=== PATIENT | male | born 1995 | race Caucasian/White ===

== ENCOUNTER 2017-05-16 23:31 | Emergency (ER) | payer BC, OTHER ==
[2017-05-16] MEDS ORDERED: Sodium Chloride 0.9% 1000 ML 1,000 ML IV STA (23:44)
--- NOTE | 2017-05-16 23:47 | ERPHSYRPT ---
- History of Present Illness Time Seen by Provider: 05/16/17 23:36 Source: patient Exam Limitations: no limitations Physician History: ABOUT 25 MINUTES AGO PT STARTED WITH INTERMITTENT DULL LEFT ANTERIOR CHEST PAIN LASTING UP TO 2 SECONDS PER EPISODE, DIAPHORESIS, FAST HEART RATE AND SKIPPING HEART BEAT; DENIES SHORTNESS OF AIR, NAUSEA, VOMITING, HEADACHE. Allergies/Adverse Reactions: No Known Drug Allergies Allergy (Unverified 05/17/17 00:02) Home Medications: Alprazolam [Xanax] 0.5 mg PO BIDPRN PRN 05/17/17 [History] Metoprolol Tartrate 37.5 mg PO DAILY 05/17/17 [History] Venlafaxine HCl 37.5 mg [Effexor 37.5 mg] 37.5 mg PO DAILY 05/17/17 [ History] Hx Tetanus, Diphtheria Vaccination/Date Given: Yes Hx Influenza Vaccination/Date Given: No Hx Pneumococcal Vaccination/Date Given: No - Review of Systems Constitutional: No Fever Respiratory: No Dyspnea Cardiac: Chest Pain, Palpitations Abdominal/Gastrointestinal: No Nausea, No Vomiting Neurological: No Headache Endocrine: Excessive Sweating All Other Systems: Reviewed and Negative - Past Medical History Pertinent Past Medical History: No - Past Surgical History Past Surgical History: No - Social History Smoking Status: Never smoker Exposure to second hand smoke: No Drug Use: none - Nursing Vital Signs Nursing Vital Signs: Initial Vital Signs Pulse Rate 106 H 05/16/17 23:32 Respiratory Rate 20 05/16/17 23:32 Blood Pressure 185/117 05/16/17 23:32 O2 Sat by Pulse Oximetry 99 05/16/17 23:32 Pain Scale Pain Intensity 2 - Physical Exam General Appearance: alert, anxiety Eye Exam: PERRL/EOMI Ears, Nose, Throat Exam: TMs normal, pharynx normal, moist mucous membranes Neck Exam: normal inspection Respiratory Exam: lungs clear Cardiovascular Exam: normal heart sounds Gastrointestinal/Abdomen Exam: soft, normal bowel sounds Back Exam: normal range of motion Extremity Exam: normal inspection, No pedal edema Neurologic Exam: alert, cooperative, No normal mood/affect (VERY ANXIOUS) Skin Exam: diaphoresis - Course Nursing assessment & vital signs reviewed: Yes EKG Interpreted by Me: RATE ([id number]), Sinus Tach, NORMAL AXIS, NORMAL INTERVALS - Radiology Exams Chest X-ray Interpretation: Interpreted by me, No Pneumonia Ordered Tests: Active Orders 24 hr Category Date Time Status EKG-ER Only STAT Care 05/16/17 23:43 Active IV Insertion STAT Care 05/16/17 23:44 Active CHEST 1 VIEW (PORTABLE) Stat Exams 05/16/17 23:43 Taken AMYLASE Stat Lab 05/16/17 23:50 Completed CBC W DIFF Stat Lab 05/16/17 23:50 Completed CMP Stat Lab 05/16/17 23:50 Completed LIPASE Stat Lab 05/16/17 23:50 Completed MAGNESIUM Stat Lab 05/16/17 23:50 Completed NT PRO BNP Stat Lab 05/16/17 23:50 Completed TROPONIN Q3H Lab 05/16/17 23:50 Completed TROPONIN Q3H Lab 05/17/17 02:45 Ordered TROPONIN Q3H Lab 05/17/17 05:45 Ordered TROPONIN Q3H Lab 05/17/17 08:45 Ordered TROPONIN Q3H Lab 05/17/17 11:45 Ordered UA W/RFX UR CULTURE Stat Lab 05/16/17 23:43 Ordered Urine Triage Profile Stat Lab 05/16/17 23:43 Ordered Medication Summary Generic Name Dose Route Start Last Admin Trade Name Freq PRN Reason Stop Dose Admin Magnesium Sulfate/Dextrose 100 mls @ 200 mls/hr 05/17/17 00:47 Magnesium 1 Gm / 100 Ml D5w IV 05/17/17 01:16 STAT ONE Potassium Chloride 40 meq 05/17/17 10:00 Potassium Chl 40 Meq/30 Ml Oral Solution PO 06/16/17 09:59 DAILY JEAN CLAUDE Discontinued Medications Generic Name Dose Route Start Last Admin Trade Name Freq PRN Reason Stop Dose Admin Sodium Chloride 1,000 mls @ 999 mls/hr 05/16/17 23:44 05/17/17 00:07 Sodium Chloride 0.9% 1000 Ml IV 05/17/17 00:44 999 mls/hr .Q1H1M STA Administration Sodium Chloride Confirm 05/17/17 00:04 Sodium Chloride 0.9% 1000 Ml Administered 05/17/17 00:05 Dose 1,000 mls @ ud .ROUTE .STK-MED ONE Lab/Rad Data: Laboratory Result Diagrams 05/16/17 23:50 05/16/17 23:50 Laboratory Results 05/16/17 05/16/17 05/16/17 Range/Units 23:50 23:50 23:50 WBC 10.1 (4.0-10.5) K/mm3 RBC 5.31 (4.1-5.6) M/mm3 Hgb 15.9 (12.5-18.0) gm/dl Hct 47.3 (42-50) % MCV 89.1 (78-100) fl MCH 29.9 (26-32) pg MCHC 33.6 (32-36) g/dl RDW 13.1 (11.5-14.0) % Plt Count 298 (150-450) K/mm3 MPV 9.5 (6-9.5) fl Gran % 58.6 (36.0-66.0) % Lymphocytes % 29.0 (24.0-44.0) % Monocytes % 10.9 (0.0-12.0) % Eosinophils % 1.1 (0.00-5.0) % Basophils % 0.4 (0.0-0.4) % Basophils # 0.04 (0-0.4) Sodium 140 (136-145) mEq/L Potassium 3.1 L (3.5-5.1) mEq/L Chloride 101 (98-107) mEq/L Carbon Dioxide 25.8 (21-32) mEq/L Anion Gap 16.6 H (5-15) MEQ/L BUN 8 L (9-20) mg/dL Creatinine 1.09 (0.55-1.30) mg/dl Estimated GFR > 60 ML/MIN Glucose 110 (70-110) MG/DL Calcium 9.3 (8.5-10.1) mg/dL Magnesium 1.3 L (1.8-2.4) mg/dL Total Bilirubin 0.40 (0.2-1.0) mg/dL AST 70 H (15-37) U/L ALT 119 H (12-78) U/L Alkaline Phosphatase 62 (46-116) U/L Troponin I < 0.017 (0.000-0.056) ng/ml NT-Pro-B Natriuret Pep < 5.0 (0-125) pg/ml Serum Total Protein 8.3 H (6.4-8.2) gm/dL Albumin 4.3 (3.4-5.0) g/dL Amylase 29 (25-115) U/L Lipase 84 (73-393) U/L - Departure Time of Disposition: 00:55 Departure Disposition: Home Clinical Impression: PALPITATIONS, HYPOKALEMIA, HYPOMAGNESEMIA, CHEST PAIN, ANXIETY Condition: Stable Critical Care Time: No Referrals: KARIN SÁNCHEZ [Primary Care Provider] - Instructions: Arrhythmias, Chest Pain Additional Instructions: FOLLOW UP WITH PRIVATE DOCTOR TOMORROW.
[2017-05-16 23:56] LABS: BASOPHIL % 0.4 % (0.0-0.4); Eosinophil % 1.1 % (0.00-5.0); Granulocytes % 58.6 % (36.0-66.0); Mean Cell Volume 89.1 fl (78-100); Mean Corpuscular Hemoglobin 29.9 pg (26-32); Mean Platelet Volume 9.5 fl (6-9.5); Monocytes % 10.9 % (0.0-12.0); Platelet Count 298 K/mm3 (150-450); Red Blood Count 5.31 M/mm3 (4.1-5.6); Red Cell Distribution Width 13.1 % (11.5-14.0); White Blood Count 10.1 K/mm3 (4.0-10.5)
[2017-05-17] MEDS ORDERED: Sodium Chloride 0.9% 1000 ML 1,000 ML ONE (00:04)
[2017-05-17 00:15] VITALS: O2SAT 98
[2017-05-17 00:28] LABS: ALBUMIN 4.3 g/dL (3.4-5.0); ALKALINE PHOSPHATASE 62 U/L (46-116); ANION GAP 16.6 MEQ/L (5-15); BLOOD UREA NITROGEN 8 mg/dL (9-20); CHLORIDE 101 mEq/L (98-107); Carbon Dioxide 25.8 mEq/L (21-32); Glucose 110 MG/DL (70-110); LIPASE 84 U/L (73-393); MAGNESIUM 1.3 mg/dL (1.8-2.4); Potassium 3.1 mEq/L (3.5-5.1); SGOT/AST 70 U/L (15-37); SGPT/ALT 119 U/L (12-78); SODIUM 140 mEq/L (136-145); Total Protein 8.3 gm/dL (6.4-8.2)
[2017-05-17] MEDS ORDERED: Magnesium 1 Gm / 100 Ml D5W*** 100 ML IV ONE ×2 (00:47→00:51)
[2017-05-17] MEDS ORDERED: POTASSIUM CHLORIDE 20 MEQ POWDER FOR ORAL SOL ONE (00:52)
[2017-05-17 00:57] LABS: Bilirubin NEGATIVE (NEGATIVE); Blood NEGATIVE Ery/ul (0-5); Collection Type CCMS; Glucose NEGATIVE (NEGATIVE); Leukocyte Esterase NEGATIVE (NEGATIVE)
[2017-05-17 00:58] LABS: ADD URINE CULTURE? NO (NO); COMPLETE URINE MICROSCOPIC? YES; Mucus MODERATE /HPF (NEGATIVE); WBC 0-2 /HPF (0-5)
[2017-05-17] MEDS ORDERED: POTASSIUM CHLORIDE 20 MEQ POWDER FOR ORAL SOL PO ONE (01:05)
[2017-05-17 01:42] VITALS: BP 135/86; PULSE 89
[2017-05-17] MEDS ORDERED: POTASSIUM CHL 40 MEQ/30 ML ORAL SOLUTION PO SCH (10:00)
--- NOTE | 2017-05-17 21:10 | XRAY ---
Exam: AP portable chest film from 2355 hrs. on 05/16/2017. Comparison: None. Indication: Chest pain, rapid heart beat, fluttering, patient states he had a heart murmur when he was a baby. Findings: The film was obtained in a lordotic projection. EKG leads are seen in place. The heart size and contour are normal. Pulmonary vascularity is normal. Inflation of the lungs is average. No air space infiltrates, vascular congestion, pneumothorax, or pleural fluid is seen. No acute osseous process is seen. Impression: 1. No acute cardiopulmonary process is seen.
== END 2017-05-17 01:43 | disposition home or self-care (01) ==
LOC: ED 23:31
DX: R00.2 Palpitations (principal); E87.6 Hypokalemia; E83.42 Hypomagnesemia; R07.89 Other chest pain; F41.9 Anxiety disorder, unspecified
CPT/HCPCS: 36000; 36415; 71010; 80053; 80307; 81000; 82150; 83690; 83735; 83880; 84484; 85025; 93005; 96360; 96365; 99284; J3475

== ENCOUNTER 2017-10-07 14:45 | Emergency (ER) | payer OTHER ==
[2017-10-07 14:59] VITALS: O2SAT 100
[2017-10-07] MEDS ORDERED: Sodium Chloride 0.9% 1000 ML 1,000 ML IV STA (15:01)
[2017-10-07 15:20] LABS: BASOPHIL % 0.3 % (0.0-0.4); Basophil (Absolute #) 0.03 (0-0.4); Granulocyte Absolute (ANC) 6.79 (1.4-6.9); Granulocytes % 68.4 % (36.0-66.0); Hematocrit 48.6 % (42-50); Hemoglobin 15.9 gm/dl (12.5-18.0); Lymphocyte (Absolute #) 2.01 (1.0-4.6); Lymphocytes % 20.2 % (24.0-44.0); Mean Cell Volume 90.2 fl (78-100); Mean Corpuscular Hemoglobin 29.5 pg (26-32); Mean Corpuscular Hgb Concent. 32.7 g/dl (32-36); Mean Platelet Volume 9.5 fl (6-9.5); Monocytes % 10.1 % (0.0-12.0); Platelet Count 301 K/mm3 (150-450); Red Blood Count 5.39 M/mm3 (4.1-5.6); Red Cell Distribution Width 13.6 % (11.5-14.0); White Blood Count 9.9 K/mm3 (4.0-10.5)
--- NOTE | 2017-10-07 15:21 | ERPHSYRPT ---
- History of Present Illness Time Seen by Provider: 10/07/17 14:46 Source: patient Patient Subjective Stated Complaint: onset of chest pain today with some dizziness. Triage Nursing Assessment: to room per w/c. skin moist, normal color. no peripheral edema noted. Physician History: CC: palpitations HX: 22 y/o patient with hx of palpitations. He had fluttering feeling in his chest, left sided chest pain to armpit. No fever or chills. No shortness of breath. Not anxious. He came to ER. Takes beta steve regularly and took it today. No hx of thyroid disorder. He is overweight. 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 Timing/Duration: today Severity: moderate Allergies/Adverse Reactions: No Known Drug Allergies Allergy (Unverified 05/17/17 00:02) Home Medications: Alprazolam [Xanax] 0.5 mg PO BIDPRN PRN 05/17/17 [History] Metoprolol Tartrate 37.5 mg PO DAILY 05/17/17 [History] Venlafaxine HCl 37.5 mg [Effexor 37.5 mg] 37.5 mg PO DAILY 05/17/17 [ History] Hx Tetanus, Diphtheria Vaccination/Date Given: No Hx Influenza Vaccination/Date Given: No Hx Pneumococcal Vaccination/Date Given: No Immunizations Up to Date: No - Review of Systems Constitutional: Fatigue, Malaise, No Fever, No Chills Eyes: No Symptoms Ears, Nose, & Throat: No Symptoms Respiratory: No Cough, No Dyspnea Cardiac: Chest Pain, Palpitations, No Syncope Abdominal/Gastrointestinal: No Abdominal Pain, No Nausea, No Vomiting, No Diarrhea Genitourinary Symptoms: No Symptoms Skin: No Rash Neurological: No Dizziness, No Focal Weakness, No Headache, No Parasthesia All Other Systems: Reviewed and Negative - Past Medical History Pertinent Past Medical History: Yes Cardiac History: Arrhythmia Other Medical History: SVT - Past Surgical History Past Surgical History: Yes Musculoskeletal: Other Other Surgical History: left arm surgery - Social History Smoking Status: Never smoker Exposure to second hand smoke: No Drug Use: none Patient Lives Alone: Yes - Nursing Vital Signs Nursing Vital Signs: Initial Vital Signs Temperature 98.9 F 10/07/17 14:46 Pulse Rate 110 H 10/07/17 14:46 Respiratory Rate 20 10/07/17 14:46 Blood Pressure 168/110 10/07/17 14:46 O2 Sat by Pulse Oximetry 100 10/07/17 14:46 Pain Scale Pain Intensity 0 - Physical Exam General Appearance: alert, other (pleasant man, diaphoretic at rest which he states is not unusual) Eye Exam: PERRL/EOMI Ears, Nose, Throat Exam: normal ENT inspection, moist mucous membranes Neck Exam: normal inspection, non-tender, supple Respiratory Exam: normal breath sounds, chest tenderness, lungs clear Cardiovascular Exam: regular rate/rhythm, No murmur, No pulse deficit (2+ femorla pulses) Gastrointestinal/Abdomen Exam: soft, No tenderness, No distention Back Exam: normal inspection Extremity Exam: normal inspection, normal range of motion, No calf tenderness, No pedal edema Neurologic Exam: alert, oriented x 3, cooperative, No motor deficits, No sensory deficit Skin Exam: warm, dry, No rash SpO2 Interpretation: normal SpO2: 100 Oxygen Delivery: Room Air - Course Nursing assessment & vital signs reviewed: Yes EKG Interpreted by Me: RATE (99), Sinus Rhythm, NORMAL AXIS, NORMAL INTERVALS ( QTc 458), NORMAL QRS, NORMAL ST-T - Radiology Exams cxr X-ray Interpretation: Teleradiologist Report, Negative Ordered Tests: Active Orders 24 hr Category Date Time Status EKG-ER Only STAT Care 10/07/17 15:01 Active IV Insertion STAT Care 10/07/17 15:01 Active CHEST 1 VIEW (PORTABLE) Stat Exams 10/07/17 15:02 Completed CBC W DIFF Stat Lab 10/07/17 14:50 Completed CMP Stat Lab 10/07/17 14:50 Completed MAGNESIUM Stat Lab 10/07/17 14:50 Completed TROPONIN Q3H Lab 10/07/17 14:50 Completed TROPONIN Q3H Lab 10/07/17 18:17 Completed TROPONIN Q3H Lab 10/07/17 21:15 Ordered TROPONIN Q3H Lab 10/08/17 00:15 Ordered TROPONIN Q3H Lab 10/08/17 03:15 Ordered TSH [TSH, 3RD Generation] Stat Lab 10/07/17 14:50 Completed UA W/RFX UR CULTURE Stat Lab 10/07/17 17:10 Completed Medication Summary Generic Name Dose Route Start Last Admin Trade Name Freq PRN Reason Stop Dose Admin Magnesium Sulfate/Dextrose 100 mls @ 100 mls/hr 10/07/17 17:45 10/07/17 18:08 Magnesium 1 Gm / 100 Ml D5w IV 10/07/17 19:44 100 mls/hr Q1H JEAN CLAUDE Administration Discontinued Medications Generic Name Dose Route Start Last Admin Trade Name Julissa PRN Reason Stop Dose Admin Hydroxyzine HCl 50 mg 10/07/17 15:48 10/07/17 16:15 Atarax 25 Mg PO 10/07/17 15:49 50 mg STAT ONE Administration Hydroxyzine HCl Confirm 10/07/17 16:14 Atarax 25 Mg Administered 10/07/17 16:15 Dose 50 mg .ROUTE .STK-MED ONE Sodium Chloride 1,000 mls @ 999 mls/hr 10/07/17 15:01 10/07/17 15:37 Sodium Chloride 0.9% 1000 Ml IV 10/07/17 16:01 999 mls/hr .Q1H1M STA Administration Sodium Chloride Confirm 10/07/17 15:26 Sodium Chloride 0.9% 1000 Ml Administered 10/07/17 15:27 Dose 1,000 mls @ ud .ROUTE .STK-MED ONE Metoprolol Succinate 25 mg 10/07/17 17:46 10/07/17 18:08 Toprol-Xl 25mg Tablets PO 10/07/17 17:47 25 mg STAT ONE Administration Metoprolol Succinate Confirm 10/07/17 18:04 Toprol-Xl 25mg Tablets Administered 10/07/17 18:05 Dose 25 mg .ROUTE .STK-MED ONE Potassium Bicarbonate 25 meq 10/07/17 17:42 10/07/17 18:09 K-Lyte 25 Meq PO 10/07/17 17:43 25 meq STAT ONE Administration Potassium Bicarbonate Confirm 10/07/17 18:05 K-Lyte 25 Meq Administered 10/07/17 18:06 Dose 25 meq .ROUTE .STK-MED ONE Lab/Rad Data: Laboratory Result Diagrams 10/07/17 14:50 10/07/17 14:50 Laboratory Results 10/07/17 10/07/17 10/07/17 Range/Units 18:17 17:10 14:50 WBC (4.0-10.5) K/mm3 RBC (4.1-5.6) M/mm3 Hgb (12.5-18.0) gm/dl Hct (42-50) % MCV (78-100) fl MCH (26-32) pg MCHC (32-36) g/dl RDW (11.5-14.0) % Plt Count (150-450) K/mm3 MPV (6-9.5) fl Gran % (36.0-66.0) % Lymphocytes % (24.0-44.0) % Monocytes % (0.0-12.0) % Eosinophils % (0.00-5.0) % Basophils % (0.0-0.4) % Basophils # (0-0.4) Sodium (136-145) mEq/L Potassium (3.5-5.1) mEq/L Chloride (98-107) mEq/L Carbon Dioxide (21-32) mEq/L Anion Gap (5-15) MEQ/L BUN (9-20) mg/dL Creatinine (0.55-1.30) mg/dl Estimated GFR ML/MIN Glucose (70-110) MG/DL Calcium (8.5-10.1) mg/dL Magnesium (1.8-2.4) mg/dL Total Bilirubin (0.2-1.0) mg/dL AST (15-37) U/L ALT (12-78) U/L Alkaline Phosphatase (46-116) U/L Troponin I < 0.017 (0.000-0.056) ng/ml Serum Total Protein (6.4-8.2) gm/dL Albumin (3.4-5.0) g/dL TSH 3rd Generation 1.997 (0.358-3.740) mIU/L Ur Collection Type CCMS Urine Color YELLOW (YELLOW) Urine Appearance CLEAR (CLEAR) Urine pH 8.0 (5-6) Ur Specific Kinsey 1.005 (1.005-1.025) Urine Protein NEGATIVE (Negative) Urine Ketones NEGATIVE (NEGATIVE) Urine Blood NEGATIVE (0-5) Cj/ul Urine Nitrite NEGATIVE (NEGATIVE) Urine Bilirubin NEGATIVE (NEGATIVE) Urine Urobilinogen NORMAL (0-1) mg/dL Ur Leukocyte Esterase NEGATIVE (NEGATIVE) Urine Culture Reflexed NO (NO) Urine Glucose NEGATIVE (NEGATIVE) mg/dL Specimen Received 10-07-17 1733 0210/07/17 10/07/17 Range/Units 14:50 14:50 14:50 WBC (4.0-10.5) K/mm3 RBC (4.1-5.6) M/mm3 Hgb (12.5-18.0) gm/dl Hct (42-50) % MCV (78-100) fl MCH (26-32) pg MCHC (32-36) g/dl RDW (11.5-14.0) % Plt Count (150-450) K/mm3 MPV (6-9.5) fl Gran % (36.0-66.0) % Lymphocytes % (24.0-44.0) % Monocytes % (0.0-12.0) % Eosinophils % (0.00-5.0) % Basophils % (0.0-0.4) % Basophils # (0-0.4) Sodium 138 (136-145) mEq/L Potassium 3.3 L (3.5-5.1) mEq/L Chloride 98 (98-107) mEq/L Carbon Dioxide 29.5 (21-32) mEq/L Anion Gap 13.7 (5-15) MEQ/L BUN 6 L (9-20) mg/dL Creatinine 0.98 (0.55-1.30) mg/dl Estimated GFR > 60 ML/MIN Glucose 118 H (70-110) MG/DL Calcium 9.4 (8.5-10.1) mg/dL Magnesium 1.7 L (1.8-2.4) mg/dL Total Bilirubin 0.50 (0.2-1.0) mg/dL AST 166 H (15-37) U/L ALT 216 H (12-78) U/L Alkaline Phosphatase 63 (46-116) U/L Troponin I < 0.017 (0.000-0.056) ng/ml Serum Total Protein 8.3 H (6.4-8.2) gm/dL Albumin 4.1 (3.4-5.0) g/dL TSH 3rd Generation (0.358-3.740) mIU/L Ur Collection Type Urine Color (YELLOW) Urine Appearance (CLEAR) Urine pH (5-6) Ur Specific Kinsey (1.005-1.025) Urine Protein (Negative) Urine Ketones (NEGATIVE) Urine Blood (0-5) Cj/ul Urine Nitrite (NEGATIVE) Urine Bilirubin (NEGATIVE) Urine Urobilinogen (0-1) mg/dL Ur Leukocyte Esterase (NEGATIVE) Urine Culture Reflexed (NO) Urine Glucose (NEGATIVE) mg/dL Specimen Received 10/07/17 Range/Units 14:50 WBC 9.9 (4.0-10.5) K/mm3 RBC 5.39 (4.1-5.6) M/mm3 Hgb 15.9 (12.5-18.0) gm/dl Hct 48.6 (42-50) % MCV 90.2 (78-100) fl MCH 29.5 (26-32) pg MCHC 32.7 (32-36) g/dl RDW 13.6 (11.5-14.0) % Plt Count 301 (150-450) K/mm3 MPV 9.5 (6-9.5) fl Gran % 68.4 H (36.0-66.0) % Lymphocytes % 20.2 L (24.0-44.0) % Monocytes % 10.1 (0.0-12.0) % Eosinophils % 1.0 (0.00-5.0) % Basophils % 0.3 (0.0-0.4) % Basophils # 0.03 (0-0.4) Sodium (136-145) mEq/L Potassium (3.5-5.1) mEq/L Chloride (98-107) mEq/L Carbon Dioxide (21-32) mEq/L Anion Gap (5-15) MEQ/L BUN (9-20) mg/dL Creatinine (0.55-1.30) mg/dl Estimated GFR ML/MIN Glucose (70-110) MG/DL Calcium (8.5-10.1) mg/dL Magnesium (1.8-2.4) mg/dL Total Bilirubin (0.2-1.0) mg/dL AST (15-37) U/L ALT (12-78) U/L Alkaline Phosphatase (46-116) U/L Troponin I (0.000-0.056) ng/ml Serum Total Protein (6.4-8.2) gm/dL Albumin (3.4-5.0) g/dL TSH 3rd Generation (0.358-3.740) mIU/L Ur Collection Type Urine Color (YELLOW) Urine Appearance (CLEAR) Urine pH (5-6) Ur Specific Kinsey (1.005-1.025) Urine Protein (Negative) Urine Ketones (NEGATIVE) Urine Blood (0-5) Cj/ul Urine Nitrite (NEGATIVE) Urine Bilirubin (NEGATIVE) Urine Urobilinogen (0-1) mg/dL Ur Leukocyte Esterase (NEGATIVE) Urine Culture Reflexed (NO) Urine Glucose (NEGATIVE) mg/dL Specimen Received - Progress Progress Note: 10/07/17 17:47 He is much improved. Will suppl K and mag. Await 3 hour troponin. 10/07/17 18:46 Stable. 3 hour troponin also neg. He will increase toprol xl and follow up with Dr Torres. Counseled pt/family regarding: lab results, diagnosis, need for follow-up, rad results - Departure Time of Disposition: 18:50 Departure Disposition: Home Clinical Impression: Palpitations, Chest pain, Hypomagnesemia, Elevated transaminase level, Morbid obesity Condition: Stable Critical Care Time: No Referrals: KARIN TORRES [Primary Care Provider] - Instructions: Chest Pain (DC), Palpitations (DC) Additional Instructions: Rest and no driving tonite. Increase toprol xl to 75mg daily. Follow upw ith Dr Torres this week. Return for problems or concerns.
[2017-10-07] MEDS ORDERED: Sodium Chloride 0.9% 1000 ML 1,000 ML ONE (15:26)
[2017-10-07 15:44] LABS: ALBUMIN 4.1 g/dL (3.4-5.0); ALKALINE PHOSPHATASE 63 U/L (46-116); ANION GAP 13.7 MEQ/L (5-15); BLOOD UREA NITROGEN 6 mg/dL (9-20); CHLORIDE 98 mEq/L (98-107); Calcium 9.4 mg/dL (8.5-10.1); Carbon Dioxide 29.5 mEq/L (21-32); Creatinine 1 0.98 mg/dl (0.55-1.30); EST GLOMERULAR FILTRATION RATE > 60 ML/MIN; Glucose 118 MG/DL (70-110); Potassium 3.3 mEq/L (3.5-5.1); SGOT/AST 166 U/L (15-37); SGPT/ALT 216 U/L (12-78); SODIUM 138 mEq/L (136-145); Total Protein 8.3 gm/dL (6.4-8.2)
[2017-10-07] MEDS ORDERED: ATARAX 25 MG PO ONE (15:48)
--- NOTE | 2017-10-07 16:00 | XRAY ---
Indication: Chest pain and palpitations. Comparison: May 16, 2017. Portable apical lordotic chest again demonstrates normal heart and lungs. Bony thorax intact. No new/acute findings.
[2017-10-07] MEDS ORDERED: ATARAX 25 MG ONE (16:14)
[2017-10-07 17:33] LABS: Appearance CLEAR (CLEAR); Bilirubin NEGATIVE (NEGATIVE); Blood NEGATIVE Ery/ul (0-5); Glucose NEGATIVE (NEGATIVE); Ketones NEGATIVE (NEGATIVE); Leukocyte Esterase NEGATIVE (NEGATIVE); Nitrite NEGATIVE (NEGATIVE); Protein,Urine Dip NEGATIVE (Negative); Specific Gravity 1.005 (1.005-1.025); Urobilinogen NORMAL mg/dL (0-1)
[2017-10-07] MEDS ORDERED: K-LYTE 25 MEQ PO ONE (17:42)
[2017-10-07] MEDS ORDERED: Toprol-Xl 25MG Tablets PO ONE (17:46)
[2017-10-07] MEDS ORDERED: Toprol-Xl 25MG Tablets ONE (18:04)
[2017-10-07] MEDS ORDERED: K-LYTE 25 MEQ ONE (18:05)
[2017-10-07] MEDS ORDERED: Magnesium 1 Gm / 100 Ml D5W*** 200 ML IV ONE (18:05)
[2017-10-07] MEDS: Magnesium 1 Gm / 100 Ml D5W*** 100 ML IV SCH ×2 (18:07→18:08)
[2017-10-07 18:52] VITALS: BP 146/101; PULSE 98
== END 2017-10-07 19:25 | disposition home or self-care (01) ==
LOC: ED 14:45
DX: R00.2 Palpitations (principal); R07.89 Other chest pain; E83.42 Hypomagnesemia; R74.0 Nonspecific elevation of levels of transaminase and lactic acid dehydrogenase [LDH]; E66.01 Morbid (severe) obesity due to excess calories; Z79.899 Other long term (current) drug therapy
CPT/HCPCS: 36000; 36415; 71045; 80053; 81002; 83735; 84443; 84484; 85025; 93005; 96360; 96365; 99284; J3475; A9270-GY

== ENCOUNTER 2019-06-25 17:30 | Emergency (ER) | payer BC, OTHER ==
[2019-06-25] MEDS ORDERED: BABY ASPIRIN 81 MG CHEW PO ONE (17:39)
--- NOTE | 2019-06-25 17:39 | ERPHSYRPT ---
- History of Present Illness Time Seen by Provider: 06/25/19 17:31 Source: patient, family Exam Limitations: no limitations Physician History: patient has a history of SVT. He required adenosine at that time. This happened 2 years ago. Patient lost her job 2 months ago and more back to this area. Patient said he is stressed out. Just before he came in he had an acute onset of a palpitation. I also had some chest pain. Heart rate 118 in the ER. No SVT in the ER. Timing/Duration: today Activities at Onset: none Quality: aching Location: substernal Chest Pain Radiation: no radiation Severity of Pain-Max: mild Severity of Pain-Current: none Modifying Factors: Improves With: nothing Nitro Today/Relief: no nitro taken today Aspirin Treatment Today: no aspirin today Associated Symptoms: diaphoresis, chest pain, No nausea, No vomiting, No abdominal pain, No shortness of breath, No heartburn, No cough, No chills, No fever, No headaches, No loss of appetite, No malaise, No rash, No syncope, No seizure, No weakness Allergies/Adverse Reactions: No Known Drug Allergies Allergy (Verified 06/25/19 17:40) Hx Tetanus, Diphtheria Vaccination/Date Given: No Hx Influenza Vaccination/Date Given: No Hx Pneumococcal Vaccination/Date Given: No - Review of Systems Constitutional: No Fever, No Chills Eyes: No Symptoms Ears, Nose, & Throat: No Symptoms Respiratory: No Cough, No Dyspnea Cardiac: Chest Pain, Palpitations, Other (Pt pinching his nipples), No Edema, No Syncope Abdominal/Gastrointestinal: No Abdominal Pain, No Nausea, No Vomiting, No Diarrhea Genitourinary Symptoms: No Dysuria Musculoskeletal: No Back Pain, No Neck Pain Skin: No Rash Neurological: No Dizziness, No Focal Weakness, No Sensory Changes Psychological: Anxiety Endocrine: No Symptoms All Other Systems: Reviewed and Negative - Past Medical History Pertinent Past Medical History: Yes Cardiac History: Arrhythmia Other Medical History: SVT - Past Surgical History Past Surgical History: Yes Musculoskeletal: Other Other Surgical History: left arm surgery - Social History Smoking Status: Never smoker Exposure to second hand smoke: No Drug Use: none Patient Lives Alone: Yes - Nursing Vital Signs Nursing Vital Signs: Initial Vital Signs Temperature 98.4 F 06/25/19 17:31 Pulse Rate 112 H 06/25/19 17:31 Respiratory Rate 22 06/25/19 17:31 Blood Pressure 139/91 06/25/19 17:31 O2 Sat by Pulse Oximetry 99 06/25/19 17:31 Pain Scale Pain Intensity 0 - Physical Exam General Appearance: no apparent distress, alert, anxiety Eye Exam: PERRL/EOMI, eyes nml inspection Ears, Nose, Throat Exam: normal ENT inspection, moist mucous membranes Neck Exam: normal inspection, non-tender, supple Respiratory Exam: normal breath sounds, lungs clear, No respiratory distress Cardiovascular Exam: regular rate/rhythm, normal heart sounds, tachycardia, No edema Gastrointestinal/Abdomen Exam: soft, No tenderness, No mass Back Exam: normal inspection, No CVA tenderness, No vertebral tenderness Extremity Exam: normal inspection, normal range of motion Neurologic Exam: alert, oriented x 3, cooperative, normal mood/affect, nml cerebellar function, sensation nml, No motor deficits Skin Exam: normal color, warm, dry Lymphatic Exam: No adenopathy - Course Nursing assessment & vital signs reviewed: Yes EKG Interpreted by Me: Sinus Rhythm, Sinus Tach, NORMAL AXIS, NORMAL INTERVALS, NORMAL QRS, Non-specific ST Changes Ordered Tests: Active Orders 24 hr Category Date Time Status Ice Bag Assembler STAT Care 06/25/19 17:40 Active EKG-ER Only STAT Care 06/25/19 17:39 Active IV Insertion STAT Care 06/25/19 17:39 Active CHEST 1 VIEW (PORTABLE) Stat Exams 06/25/19 17:40 Ordered CBC W DIFF Stat Lab 06/25/19 18:00 Completed CMP Stat Lab 06/25/19 18:00 Completed MAGNESIUM Stat Lab 06/25/19 Completed NT PRO BNP Stat Lab 06/25/19 18:00 Completed TROPONIN Stat Lab 06/25/19 18:00 Completed Medication Summary Discontinued Medications Generic Name Dose Route Start Last Admin Trade Name Freq PRN Reason Stop Dose Admin Aspirin 324 mg 06/25/19 17:39 06/25/19 18:21 Baby Aspirin 81 Mg Chew PO 06/25/19 17:40 324 mg STAT ONE Administration Aspirin Confirm 06/25/19 18:19 Baby Aspirin 81 Mg Chew Administered 06/25/19 18:20 Dose 324 mg .ROUTE .STK-MED ONE Metoprolol Tartrate 50 mg 06/25/19 17:40 06/25/19 18:21 Lopressor 25mg Tab PO 06/25/19 17:41 50 mg STAT ONE Administration Metoprolol Tartrate Confirm 06/25/19 18:19 Lopressor 50 Mg Administered 06/25/19 18:20 Dose 50 mg .ROUTE .STK-MED ONE Lab/Rad Data: Laboratory Result Diagrams 06/25/19 18:00 06/25/19 18:00 Laboratory Results 06/25/19 06/25/19 06/25/19 Range/Units Unknown 18:00 18:00 WBC 7.2 (4.0-10.5) K/mm3 RBC 5.06 (4.1-5.6) M/mm3 Hgb 15.8 (12.5-18.0) gm/dl Hct 47.0 (42-50) % MCV 92.9 (78-100) fl MCH 31.2 (26-32) pg MCHC 33.6 (32-36) g/dl RDW 12.9 (11.5-14.0) % Plt Count 237 (150-450) K/mm3 MPV 9.6 H (6-9.5) fl Gran % 56.9 (36.0-66.0) % Eos # (Auto) 0.07 (0-0.5) Absolute Lymphs (auto) 1.84 (1.0-4.6) Absolute Monos (auto) 1.13 (0.0-1.3) Lymphocytes % 25.7 (24.0-44.0) % Monocytes % 15.8 H (0.0-12.0) % Eosinophils % 1.0 (0.00-5.0) % Basophils % 0.6 (0.0-0.4) % Absolute Granulocytes 4.09 (1.4-6.9) Basophils # 0.04 (0-0.4) Sodium 142 (137-145) mmol/L Potassium 3.4 L (3.5-5.1) mmol/L Chloride 99 (98-107) mmol/L Carbon Dioxide 30 (22-30) mmol/L Anion Gap 16.4 H (5-15) MEQ/L BUN 9 (9-20) mg/dL Creatinine 0.77 (0.66-1.25) mg/dL Estimated GFR > 60.0 ML/MIN Glucose 95 (74-106) mg/dL Calcium 10.0 (8.4-10.2) mg/dL Magnesium 1.6 (1.6-2.3) mg/dL Total Bilirubin 0.60 (0.2-1.3) mg/dL AST 126 H (17-59) U/L ALT 218 H (0-50) U/L Alkaline Phosphatase 65 (38-126) U/L Troponin I < 0.012 (0.000-0.034) ng/mL NT-Pro-B Natriuret Pep 13.1 (0-450) pg/mL Serum Total Protein 8.5 H (6.3-8.2) g/dL Albumin 4.8 (3.5-5.0) g/dL - Progress Progress: improved Air Movement: good Progress Note: 06/25/19 19:03 heart rate 96 per minute. Patient asymptomatic. Vital signs stable. Exam unremarkable. Workup negative. We'll discharge patient home. We'll write metoprolol Blood Culture(s) Obtained: No Antibiotics given: No Counseled pt/family regarding: lab results, diagnosis, need for follow-up - Departure Departure Disposition: Home Clinical Impression: Palpitation, Tachycardia Condition: Good Critical Care Time: No Referrals: KARIN SÁNCHEZ [Primary Care Provider] - Instructions: Palpitations (DC) Prescriptions: Metoprolol Tartrate 25 mg [Lopressor 25MG Tab] 25 mg PO DAILY #30 tab
[2019-06-25] MEDS ORDERED: Lopressor 25MG Tab PO ONE (17:40)
[2019-06-25] MEDS ORDERED: BABY ASPIRIN 81 MG CHEW ONE (18:19)
[2019-06-25] MEDS ORDERED: Lopressor 50 MG ONE (18:19)
[2019-06-25 18:43] LABS: Absolute Neutrophil Ct (ANC) 4.09 (1.4-6.9); BASOPHIL % 0.6 % (0.0-0.4); Basophil (Absolute #) 0.04 (0-0.4); Eosinophil (Absolute #) 0.07 (0-0.5); Hemoglobin 15.8 gm/dl (12.5-18.0); Lymphocyte (Absolute #) 1.84 (1.0-4.6); Lymphocytes % 25.7 % (24.0-44.0); Mean Cell Volume 92.9 fl (78-100); Mean Corpuscular Hemoglobin 31.2 pg (26-32); Mean Corpuscular Hgb Concent. 33.6 g/dl (32-36); Mean Platelet Volume 9.6 fl (6-9.5); Monocyte (Absolute #) 1.13 (0.0-1.3); Monocytes % 15.8 % (0.0-12.0); Neutrophil % 56.9 % (36.0-66.0); Platelet Count 237 K/mm3 (150-450); Red Blood Count 5.06 M/mm3 (4.1-5.6); Red Cell Distribution Width 12.9 % (11.5-14.0); White Blood Count 7.2 K/mm3 (4.0-10.5)
[2019-06-25 18:47] LABS: ALBUMIN 4.8 g/dL (3.5-5.0); ALKALINE PHOSPHATASE 65 U/L (38-126); ANION GAP 16.4 MEQ/L (5-15); BLOOD UREA NITROGEN 9 mg/dL (9-20); CHLORIDE 99 mmol/L (98-107); Carbon Dioxide 30 mmol/L (22-30); Creatinine 1 0.77 mg/dL (0.66-1.25); Glucose 95 mg/dL (74-106); NT PRO BNP 13.1 pg/mL (0-450); Potassium 3.4 mmol/L (3.5-5.1); SGOT/AST 126 U/L (17-59); SGPT/ALT 218 U/L (0-50); SODIUM 142 mmol/L (137-145); Total Protein 8.5 g/dL (6.3-8.2)
[2019-06-25 18:48] LABS: TROPONIN < 0.012 ng/mL (0.000-0.034)
[2019-06-25 20:10] VITALS: BP 163/98; PULSE 92; O2SAT 96
--- NOTE | 2019-06-26 08:48 | XRAY ---
Indication: Chest pain. Comparison: October 07, 2017. Portable apical lordotic chest again demonstrates normal heart, lungs, and bony thorax.
== END 2019-06-25 20:10 | disposition home or self-care (01) ==
LOC: ED 17:30
DX: R00.2 Palpitations (principal); R00.0 Tachycardia, unspecified; R61 Generalized hyperhidrosis; R07.9 Chest pain, unspecified
CPT/HCPCS: 36415; 71045; 80053; 83735; 83880; 84484; 85025; 93005; 93041; 99284; A9270-GY

== ENCOUNTER 2023-02-28 14:28 | Observation (INO) | payer BC, MEDICAID ==
[2023-02-28] MEDS ORDERED: BABY ASPIRIN 81 MG CHEW PO ONE (14:46)
[2023-02-28] MEDS ORDERED: LOPRESSOR INJECTION IV ONE ×2 (14:46→14:58)
[2023-02-28] MEDS ORDERED: Ativan 2 MG/1 ML VIAL IV ONE ×2 (14:47→16:29)
[2023-02-28 14:52] LABS: Absolute Neutrophil Ct (ANC) 3.08 x10^3/uL (1.4-6.9); BASOPHIL % 0.7 % (0.0-0.4); Basophil (Absolute #) 0.04 x10^3/uL (0-0.4); Eosinophil % 0.8 % (0.00-5.0); Eosinophil (Absolute #) 0.05 x10^3/uL (0-0.5); Hematocrit 48.3 % (42-50); Hemoglobin 16.5 g/dL (12.5-18.0); IMMATURE GRAN # 0.01 x10^3u/L (0.00-0.03); IMMATURE GRAN % 0.2 % (0.00-0.4); Lymphocyte (Absolute #) 2.17 x10^3/uL (1.0-4.6); Lymphocytes % 35.8 % (24.0-44.0); Mean Cell Volume 86.3 fL (78-100); Mean Corpuscular Hemoglobin 29.5 pg (26-32); Mean Corpuscular Hgb Concent. 34.2 g/dL (32-36); Mean Platelet Volume 8.7 fL (7.5-11.0); Monocyte (Absolute #) 0.71 x10^3/uL (0.0-1.3); Monocytes % 11.7 % (0.0-12.0); Neutrophil % 50.8 % (36.0-66.0); Platelet Count 283 x10^3/uL (150-450); Red Cell Distribution Width 12.4 % (11.5-14.0); White Blood Count 6.1 x10^3/uL (4.0-10.5)
[2023-02-28] MEDS ORDERED: Zofran 4 MG/2 ML VIAL IV ONE ×2 (14:54→19:21)
[2023-02-28] MEDS ORDERED: BABY ASPIRIN 81 MG CHEW ONE (14:58)
[2023-02-28] MEDS ORDERED: Ativan 2 MG/1 ML VIAL ONE ×2 (14:58→16:37)
[2023-02-28] MEDS ORDERED: Sodium Chloride 0.9% 1000 ML 1,000 ML ONE (14:58)
[2023-02-28] MEDS ORDERED: Sodium Chloride 0.9% 1000 ML 1,000 ML IV SCH (15:00)
--- NOTE | 2023-02-28 15:00 | ERPHSYRPT ---
- History of Present Illness Time Seen by Provider: 02/28/23 14:30 Historian: patient Exam Limitations: no limitations Patient Subjective Stated Complaint: Pt states "I am a recovering alcoholic and I was sober for 2 month adn I relapsed last night. I drank a bottle and this morning my chest started to hurt." Triage Nursing Assessment: Pt presented alert and oriented Xx 3 skin pwd. Pt ambulates with an upright steadgy gait, able to speak in clear full sentences. PT shaking and smells strongly of ETOH. Physician History: This is a 27-year-old morbidly obese white male patient who is a recovering alcoholic and moved here from [place] without his medication of Cardizem and metoprolol that he takes for chronic tachycardia and blood pressure control. He had not had a drink of alcohol for 2 months and then relapsed late last evening and early this morning. Patient admitted that he was trying to kill himself wit h alcohol poisoning. Patient denies any illicit drug use. Patient is not homicidal. He currently has left sided anterior chest wall pressure with radiation to the left scapula. He has not had a cough or fever. He has no abdominal pain. He has no vomiting or diarrhea symptoms. Timing/Duration: yesterday Activities at Onset: none Quality: pressure Location: other (Left anterior chest) Chest Pain Radiation: back Severity of Pain-Max: mild Severity of Pain-Current: mild Modifying Factors: Improves With: nothing Associated Symptoms: No nausea, No vomiting, No abdominal pain, No shortness of breath, No cough Prior Chest Pain/Cardiac Workup: no prior chest pain, no prior cardiac workup Nitro Today/Relief: no nitro taken today Aspirin Treatment Today: 81 mg x 4, provided by ED Allergies/Adverse Reactions: No Known Drug Allergies Allergy (Verified 06/25/19 17:40) Home Medications: dilTIAZem HCL [Diltiazem HCl] 60 mg PO DAILY 02/28/23 [History] Hx Tetanus, Diphtheria Vaccination/Date Given: No Hx Influenza Vaccination/Date Given: No Hx Pneumococcal Vaccination/Date Given: No Immunizations Up to Date: Yes Travel Risk - International Travel Have you traveled outside of the country in past 3 weeks: No - Coronavirus Screening Are you exhibiting any of the following symptoms?: No Close contact with a COVID-19 positive Pt in past 14-21 Days: No - Vaccine Status Have you recieved a Covid-19 vaccination: Yes Bleach Mixer: Moderna - Vaccination Dates Date of 2cond Vaccination (if applicable): 2020 - Review of Systems Constitutional: No Symptoms Eyes: No Symptoms Ears, Nose, & Throat: No Symptoms Respiratory: No Symptoms Cardiac: Chest Pain (Left anterior chest pressure) Abdominal/Gastrointestinal: No Symptoms Genitourinary Symptoms: No Symptoms Musculoskeletal: No Symptoms Skin: No Symptoms Neurological: No Symptoms Psychological: No Symptoms Endocrine: No Symptoms Hematologic/Lymphatic: No Symptoms Immunological/Allergic: No Symptoms All Other Systems: Reviewed and Negative - Past Medical History Pertinent Past Medical History: Yes Cardiac History: Arrhythmia Respiratory History: Asthma Other Medical History: SVT - Past Surgical History Past Surgical History: Yes Musculoskeletal: Other Other Surgical History: left arm surgery - Social History Smoking Status: Never smoker Exposure to second hand smoke: No Drug Use: none Patient Lives Alone: Yes - Nursing Vital Signs Nursing Vital Signs: Initial Vital Signs Temperature 98.3 F 02/28/23 14:28 Pulse Rate 110 H 02/28/23 14:28 Respiratory Rate 20 02/28/23 14:28 Blood Pressure 138/106 02/28/23 14:28 O2 Sat by Pulse Oximetry 94 L 02/28/23 14:28 Pain Scale Pain Intensity 0 - Physical Exam General Appearance: no apparent distress, alert, anxiety, obese Eye Exam: PERRL/EOMI, eyes nml inspection Ears, Nose, Throat Exam: normal ENT inspection, moist mucous membranes Neck Exam: normal inspection, non-tender, supple, full range of motion Respiratory Exam: normal breath sounds, chest tenderness, lungs clear (Left anterior chest pressure), airway intact, No respiratory distress Cardiovascular Exam: tachycardia Gastrointestinal/Abdomen Exam: soft, normal bowel sounds, No tenderness Rectal Exam: not done Back Exam: normal inspection, normal range of motion, No CVA tenderness, No vertebral tenderness Extremity Exam: normal inspection, normal range of motion, pelvis stable Neurologic Exam: alert, oriented x 3, cooperative, salvage determiner II-XII nml as tested, normal mood/affect, nml cerebellar function, nml station & gait, sensation nml Skin Exam: normal color, warm, dry Lymphatic Exam: No adenopathy SpO2 Interpretation: borderline oxygenation SpO2: 94 O2 Delivery: Room Air - Course Nursing assessment & vital signs reviewed: Yes EKG Interpreted by Me: RATE ([id number]), Sinus Tach, prolonged QT interval, NORMAL ST- T, Other (Borderline no acute ischemic changes on today's twelve-lead EKG. There is no comparison twelve-lead EKG.) Ordered Tests: Active Orders 24 hr Category Date Time Status EKG-ER Only STAT Care 02/28/23 14:46 Active IV Insertion STAT Care 02/28/23 14:46 Active Pulse Oximetry (ED) STAT Care 02/28/23 14:46 Active CHEST 1 VIEW (PORTABLE) Stat Exams 02/28/23 14:46 Completed CHEST WITH CONTRAST [CT] Stat Exams 02/28/23 15:35 Completed ACETAMINOPHEN Stat Lab 02/28/23 14:35 Completed CBC W DIFF Stat Lab 02/28/23 14:35 Completed CMP Stat Lab 02/28/23 14:35 Completed D-DIMER QUANTITATIVE Stat Lab 02/28/23 14:35 Completed ETHYL ALCOHOL Stat Lab 02/28/23 14:35 Completed SALICYLATE Stat Lab 02/28/23 14:35 Completed TROPONIN Q4H Lab 02/28/23 14:35 Completed TROPONIN Q4H Lab 02/28/23 19:00 Ordered TROPONIN Q4H Lab 02/28/23 23:00 Ordered UA W/RFX UR CULTURE Stat Lab 02/28/23 15:16 Completed Urine Triage Profile Stat Lab 02/28/23 15:16 Completed Transfer Order Routine Transfer 02/28/23 Ordered Medication Summary Generic Name Dose Route Start Last Admin Trade Name Freq PRN Reason Stop Dose Admin Sodium Chloride 1,000 mls @ 100 mls/hr 02/28/23 15:00 02/28/23 15:00 Sodium Chloride 0.9% 1000 Ml IV 03/30/23 14:59 100 mls/hr .Q10H JEAN CLAUDE Administration Discontinued Medications Generic Name Dose Route Start Last Admin Trade Name Freq PRN Reason Stop Dose Admin Aspirin 324 mg 02/28/23 14:46 02/28/23 15:00 Aspirin 81 Mg Tab.Chew PO 02/28/23 14:47 324 mg STAT ONE Administration Aspirin Confirm 02/28/23 14:58 Aspirin 81 Mg Tab.Chew Administered 02/28/23 14:59 Dose 324 mg .ROUTE .STK-MED ONE Lorazepam 1 mg 02/28/23 14:47 02/28/23 15:01 Lorazepam 2 Mg/1 Ml 2 Mg Vial IV 02/28/23 14:48 1 mg STAT ONE Administration Lorazepam Confirm 02/28/23 14:58 Lorazepam 2 Mg/1 Ml 2 Mg Vial Administered 02/28/23 14:59 Dose 2 mg .ROUTE .STK-MED ONE Lorazepam 1 mg 02/28/23 16:29 02/28/23 16:37 Lorazepam 2 Mg/1 Ml 2 Mg Vial IV 02/28/23 16:30 1 mg STAT ONE Administration Lorazepam Confirm 02/28/23 16:37 Lorazepam 2 Mg/1 Ml 2 Mg Vial Administered 02/28/23 16:38 Dose 2 mg .ROUTE .STK-MED ONE Metoprolol Tartrate 5 mg 02/28/23 14:46 02/28/23 15:00 Metoprolol Tartrate 5 Mg/5 Ml Vial IV 02/28/23 14:47 5 mg STAT ONE Administration Metoprolol Tartrate Confirm 02/28/23 14:58 Metoprolol Tartrate 5 Mg/5 Ml Vial Administered 02/28/23 14:59 Dose 5 mg IV .STK-MED ONE Ondansetron HCl 4 mg 02/28/23 14:54 02/28/23 15:03 Ondansetron Hcl 4 Mg/2 Ml Vial IV 02/28/23 14:55 4 mg STAT ONE Administration Ondansetron HCl Confirm 02/28/23 15:03 Ondansetron Hcl 4 Mg/2 Ml Vial Administered 02/28/23 15:04 Dose 4 mg .ROUTE .STK-MED ONE Lab/Rad Data: Laboratory Result Diagrams 02/28/23 14:35 02/28/23 14:35 Laboratory Results 02/28/23 02/28/23 02/28/23 Range/Units 15:16 15:16 14:35 WBC (4.0-10.5) x10^3/uL RBC (4.1-5.6) x10^6/uL Hgb (12.5-18.0) g/dL Hct (42-50) % MCV (78-100) fL MCH (26-32) pg MCHC (32-36) g/dL RDW (11.5-14.0) % Plt Count (150-450) x10^3/uL MPV (7.5-11.0) fL Gran % (36.0-66.0) % Immature Gran % (Auto) (0.00-0.4) % Nucleat RBC Rel Count (0.00-0.1) % Eos # (Auto) (0-0.5) x10^3/uL Immature Gran # (Auto) (0.00-0.03) x10^3u/L Absolute Lymphs (auto) (1.0-4.6) x10^3/uL Absolute Monos (auto) (0.0-1.3) x10^3/uL Absolute Nucleated RBC (0.00-0.01) x10^3u/L Lymphocytes % (24.0-44.0) % Monocytes % (0.0-12.0) % Eosinophils % (0.00-5.0) % Basophils % (0.0-0.4) % Absolute Granulocytes (1.4-6.9) x10^3/uL Basophils # (0-0.4) x10^3/uL D-Dimer (0.0-0.50) mg/L Sodium (137-145) mmol/L Potassium (3.5-5.1) mmol/L Chloride (98-107) mmol/L Carbon Dioxide (22-30) mmol/L Anion Gap (5-15) MEQ/L BUN (9-20) mg/dL Creatinine (0.66-1.25) mg/dL Estimated GFR ML/MIN Glucose (74-106) mg/dL Calcium (8.4-10.2) mg/dL Total Bilirubin (0.2-1.3) mg/dL AST (17-59) U/L ALT (0-50) U/L Alkaline Phosphatase (38-126) U/L Troponin I < 0.012 (0.000-0.034) ng/mL Serum Total Protein (6.3-8.2) g/dL Albumin (3.5-5.0) g/dL Urine Color Yellow (Yellow) Urine Appearance Clear (Clear) Urine pH 7.0 (4.6-8.0) Ur Specific [place] <=1.005 (1.005-1.030) Urine Protein Negative (Negative) Urine Glucose (UA) Negative (Negative) mg/dL Urine Ketones Negative (Negative) Urine Blood Negative (Negative) Urine Nitrite Negative (Negative) Urine Bilirubin Negative (Negative) Urine Urobilinogen 1.0 A (0.2) mg/dL Ur Leukocyte Esterase Negative (Negative) U Hyaline Cast (Auto) NONE SEEN (0-2) /LPF Urine Microscopic RBC 0-2 (0-5) /HPF Urine Microscopic WBC 0-2 (0-5) /HPF Ur Epithelial Cells None Seen (None Seen) /HPF Urine Bacteria None Seen (None Seen) /HPF Urine Culture Reflexed NO (NO) Salicylates (2-20) mg/dL Urine Opiates Level NEGATIVE (NEGATIVE) Ur Methadone NEGATIVE (NEGATIVE) Acetaminophen (10-30) ug/ml Urine Barbiturates NEGATIVE (NEGATIVE) Ur Phencyclidine (PCP) NEGATIVE (NEGATIVE) Urine Amphetamine NEGATIVE (NEGATIVE) U Benzodiazepine Level NEGATIVE (NEGATIVE) Urine Cocaine NEGATIVE (NEGATIVE) Urine Marijuana (THC) NEGATIVE (NEGATIVE) Ethyl Alcohol (0-10) mg/dL 02/28/23 02/28/23 02/28/23 Range/Units 14:35 14:35 14:35 WBC 6.1 (4.0-10.5) x10^3/uL RBC 5.60 (4.1-5.6) x10^6/uL Hgb 16.5 (12.5-18.0) g/dL Hct 48.3 (42-50) % MCV 86.3 (78-100) fL MCH 29.5 (26-32) pg MCHC 34.2 (32-36) g/dL RDW 12.4 (11.5-14.0) % Plt Count 283 (150-450) x10^3/uL MPV 8.7 (7.5-11.0) fL Gran % 50.8 (36.0-66.0) % Immature Gran % (Auto) 0.2 (0.00-0.4) % Nucleat RBC Rel Count 0.0 (0.00-0.1) % Eos # (Auto) 0.05 (0-0.5) x10^3/uL Immature Gran # (Auto) 0.01 (0.00-0.03) x10^3u/L Absolute Lymphs (auto) 2.17 (1.0-4.6) x10^3/uL Absolute Monos (auto) 0.71 (0.0-1.3) x10^3/uL Absolute Nucleated RBC 0.00 (0.00-0.01) x10^3u/L Lymphocytes % 35.8 (24.0-44.0) % Monocytes % 11.7 (0.0-12.0) % Eosinophils % 0.8 (0.00-5.0) % Basophils % 0.7 (0.0-0.4) % Absolute Granulocytes 3.08 (1.4-6.9) x10^3/uL Basophils # 0.04 (0-0.4) x10^3/uL D-Dimer 0.88 H* (0.0-0.50) mg/L Sodium 142 (137-145) mmol/L Potassium 4.3 (3.5-5.1) mmol/L Chloride 99 (98-107) mmol/L Carbon Dioxide 30 (22-30) mmol/L Anion Gap 18.1 H (5-15) MEQ/L BUN 8 L (9-20) mg/dL Creatinine 0.65 L (0.66-1.25) mg/dL Estimated GFR > 60.0 ML/MIN Glucose 145 H (74-106) mg/dL Calcium 8.7 (8.4-10.2) mg/dL Total Bilirubin 0.90 (0.2-1.3) mg/dL AST 169 H (17-59) U/L ALT 98 H (0-50) U/L Alkaline Phosphatase 63 (38-126) U/L Troponin I (0.000-0.034) ng/mL Serum Total Protein 8.6 H (6.3-8.2) g/dL Albumin 4.7 (3.5-5.0) g/dL Urine Color (Yellow) Urine Appearance (Clear) Urine pH (4.6-8.0) Ur Specific [place] (1.005-1.030) Urine Protein (Negative) Urine Glucose (UA) (Negative) mg/dL Urine Ketones (Negative) Urine Blood (Negative) Urine Nitrite (Negative) Urine Bilirubin (Negative) Urine Urobilinogen (0.2) mg/dL Ur Leukocyte Esterase (Negative) U Hyaline Cast (Auto) (0-2) /LPF Urine Microscopic RBC (0-5) /HPF Urine Microscopic WBC (0-5) /HPF Ur Epithelial Cells (None Seen) /HPF Urine Bacteria (None Seen) /HPF Urine Culture Reflexed (NO) Salicylates < 1.0 L (2-20) mg/dL Urine Opiates Level (NEGATIVE) Ur Methadone (NEGATIVE) Acetaminophen < 10 L (10-30) ug/ml Urine Barbiturates (NEGATIVE) Ur Phencyclidine (PCP) (NEGATIVE) Urine Amphetamine (NEGATIVE) U Benzodiazepine Level (NEGATIVE) Urine Cocaine (NEGATIVE) Urine Marijuana (THC) (NEGATIVE) Ethyl Alcohol 396 H (0-10) mg/dL - Progress Progress: improved, re-examined Air Movement: good Progress Note: 02/28/23 15:20 Chest x-ray was interpreted by the radiologist and I reviewed the impression. There is no acute cardiopulmonary process. 02/28/23 17:26 CT of the chest with contrast shows no central pulmonary embolus. Evaluation l imited by poor opacification. No acute cardiopulmonary processes appreciated. I reviewed the radiologist interpretation. 02/28/23 18:07 This patient's medical issue is 1 of high complexity. The work-up performed is based on review of the patient's past medical history, review of the patient's drug allergy list, review of the medication list, history present illness and physical findings on examination. This patient also has psychiatric issues with suicidal ideation and attempt with trying to kill himself with alcohol poisoning. His blood alcohol level is too high to be evaluated by mental health at this time. We will place him in intensive care unit on a monitored bed and repeat his labs in the morning. We will obtain a mental health consultation in the morning. I reviewed the work-up results. I discussed the above patient history, physical exam findings and work-up results with Dr. Carrera the telehospitalist on-call at this time. I also discussed the admission issue with the patient. He is aware that he cannot leave this facility until he is cleared from the medical standpoint as well as psychiatric standpoint. Counseled pt/family regarding: lab results, diagnosis, need for follow-up, rad results Medical Desision Making - Discussion of managment Care discussed with:: hospitalist (Telehospitalist Dr. Carrera) Will see patient: in hospital - Diagnostic Testing Diagnostic test were ordered, analyzed, and reviewed by me: Yes Radiological Interpretation: Reviewed by me, Teleradiologist Report - Risk of complications The pt has a high risk of morbidity or mortality based on: Decision regarding hospitilization or escalation of hosp level of care - Departure Departure Disposition: In-patient Admission Clinical Impression: Sinus tachycardia, Suicide attempt, Alcohol intoxication Condition: Stable Critical Care Time: No Referrals: KARIN SÁNCHEZ [Primary Care Provider] - Follow up/PCP as directed
[2023-02-28] MEDS ORDERED: Zofran 4 MG/2 ML VIAL ONE ×2 (15:03→19:24)
[2023-02-28 15:09] LABS: ACETAMINOPHEN < 10 ug/ml (10-30); ALBUMIN 4.7 g/dL (3.5-5.0); ALKALINE PHOSPHATASE 63 U/L (38-126); ANION GAP 18.1 MEQ/L (5-15); BLOOD UREA NITROGEN 8 mg/dL (9-20); CHLORIDE 99 mmol/L (98-107); Calcium 8.7 mg/dL (8.4-10.2); Carbon Dioxide 30 mmol/L (22-30); Creatinine 1 0.65 mg/dL (0.66-1.25); EST GLOMERULAR FILTRATION RATE > 60.0 ML/MIN; Glucose 145 mg/dL (74-106); Potassium 4.3 mmol/L (3.5-5.1); SALICYLATE < 1.0 mg/dL (2-20); SGOT/AST 169 U/L (17-59); SGPT/ALT 98 U/L (0-50); SODIUM 142 mmol/L (137-145); Total Protein 8.6 g/dL (6.3-8.2)
--- NOTE | 2023-02-28 15:13 | XRAY ---
Indication: Left chest pain. Comparison: June 25, 2019 Portable chest again demonstrates normal heart, lungs, and bony thorax.
[2023-02-28 15:25] LABS: ETHYL ALCOHOL 396 mg/dL (0-10)
--- NOTE | 2023-02-28 16:37 | XRAY ---
Indication: Chest pain. Elevated d-dimer. Multiple contiguous axial images obtained through the chest using 100 cc Isovue 370 contrast and PE protocol. Comparison: None Suboptimal opacification of the pulmonary arteries limits evaluation for pulmonary embolus. No obvious central pulmonary embolus. Heart not enlarged. Aorta is normal in course and caliber. No pathologic mediastinal/hilar lymphadenopathy. Lungs inflated and clear. Bony thorax intact old nonunited left 11 rib fracture. Limited upper abdomen demonstrates fatty liver. Impression: 1. Pulmonary embolus evaluation limited due to suboptimal contrast opacification. No obvious central pulmonary embolus. 2. Incidental fatty liver and old left 11 rib fracture. 3. Remaining CT chest with contrast exam is negative.
[2023-02-28 16:47] LABS: Appearance Clear (Clear); Bacteria None Seen /HPF (None Seen); Bilirubin Negative (Negative); Blood Negative (Negative); Epithelial Cells None Seen /HPF (None Seen); Glucose, Urine Negative (Negative); Hyaline Casts NONE SEEN /LPF (0-2); Ketones Negative (Negative); Leukocyte Esterase Negative (Negative); Nitrite Negative (Negative); Protein,Urine Dip Negative (Negative); RBC 0-2 /HPF (0-5); Specific Gravity <=1.005 (1.005-1.030); WBC 0-2 /HPF (0-5)
[2023-02-28 16:51] LABS: ADD URINE CULTURE? NO (NO)
[2023-02-28 17:00] LABS: Amphetamine,Urine NEGATIVE (NEGATIVE); Barbiturate,Urine NEGATIVE (NEGATIVE); Benzodiazepine,Urine NEGATIVE (NEGATIVE); Cocaine,Urine NEGATIVE (NEGATIVE); Methadone,Urine NEGATIVE (NEGATIVE); Opiate,Urine NEGATIVE (NEGATIVE); PCP,Urine NEGATIVE (NEGATIVE); THC,Urine NEGATIVE (NEGATIVE)
[2023-02-28] MEDS ORDERED: Ativan 2 MG/1 ML VIAL IV PRN (19:39)
[2023-02-28] MEDS ORDERED: TYLENOL 325 MG PO PRN (19:39)
[2023-02-28] MEDS ORDERED: PROTONIX 40 MG IV IV SCH (19:39)
[2023-02-28] MEDS ORDERED: Zofran 4 MG/2 ML VIAL IV PRN ×2 (19:39→19:58)
[2023-02-28] MEDS ORDERED: VALIUM 10 MG/2 ML SYRINGE IV PRN (19:54)
[2023-02-28] MEDS ORDERED: PHENERGAN 25 MG PO PRN (19:54)
--- NOTE | 2023-02-28 20:11 | PCM.HP ---
History of Present Illness - Chief Complaint Chief Complaint: Suicidal attempt Date: 02/28/23 History of Present Illness: is a 27 year old male who presents to the hospital with a report of alcohol overuse. The patient has a known history of alcohol dependence (with a prior history of withdrawals without seizure activity) and had maintained sobriety since October 2022. He also reports a history of major depressive disorder, anxiety, and PTSD. For the past week, the patient has drank a significant amount of alcohol (approximately a fifth of vodka and 10+ beers daily). He presented to the ED with a complaint of his chest aching and "shaking" but no report of seizure activity. The chest pain was on the left anterior side with radiation to his left shoulder/back. In the ED, the patient stated that he was drinking so much that he was "killing" himself but during my interview he denies any current suicidal or homicidal ideations. He has no prior history of suicide attempts. - Review of Systems Constitutional: No Symptoms Eyes: No Symptoms Ears, Nose, & Throat: No Symptoms Respiratory: No Symptoms Cardiac: Chest Pain Abdominal/Gastrointestinal: No Symptoms Genitourinary Symptoms: No Symptoms Musculoskeletal: No Symptoms Skin: No Symptoms Neurological: No Symptoms, Tremors Psychological: Alcohol Abuse, Anxiety, Depression, Mood Changes Endocrine: No Symptoms Hematologic/Lymphatic: No Symptoms Immunological/Allergic: No Symptoms All Other Systems: Reviewed and Negative Medications & Allergies Home Medications: Home Medication List Metoprolol Tartrate 25 mg [Lopressor 25MG Tab] 75 mg PO DAILY 02/28/23 [History Confirmed 02/28/23] dilTIAZem HCL [Diltiazem HCl] 60 mg PO DAILY 02/28/23 [History Confirmed 02/28/23] Allergies/Adverse Reactions: Allergies Allergy/AdvReac Type Severity Reaction Status Date / Time No Known Drug Allergies Allergy Verified 06/25/19 17:40 - Past Medical History Past Medical History: Yes Cardiac History: Arrhythmia Respiratory History: Asthma Pyscho-Social History: Anxiety, Depression, Other (PTSD) Comment: SVT - Past Surgical History Past Surgical History: Yes Musculskeletal Surgical Hx: Other Other Surgical History: left arm surgery - Social History Smoking Status: Never smoker Exposure to second hand smoke: No Alcohol: Heavy Drug Use: none - Physical Exam Vital Signs: Vital Signs - 24 hr Temp Pulse Pulse Resp BP BP Pulse Ox 02/28/23 18:15 94 L 02/28/23 18:06 87 15 138/94 95 02/28/23 18:01 93 H 17 116/72 95 02/28/23 17:30 101 H 18 124/72 96 02/28/23 17:00 88 15 129/82 94 L 02/28/23 16:45 90 15 142/92 87 L 02/28/23 16:44 102 H 16 97 02/28/23 16:40 119 H 23 02/28/23 16:30 101 H 29 H 02/28/23 16:20 96 02/28/23 15:34 93 H 20 140/83 92 L 02/28/23 15:30 90 26 H 140/83 95 02/28/23 15:26 88 L 02/28/23 15:21 91 H 19 143/95 91 L 02/28/23 15:20 105 H 18 93 L 02/28/23 15:18 95 02/28/23 14:28 98.3 F 110 H 112 H 20 138/106 94 L General Appearance: no apparent distress Neurologic Exam: alert, oriented x 3, cooperative, pediatrics hospitalist II-XII nml as tested, nml cerebellar function, other (tremulousness noted) Eye Exam: PERRL/EOMI, eyes nml inspection Ears, Nose, Throat Exam: normal ENT inspection Neck Exam: normal inspection, non-tender, supple, full range of motion Respiratory Exam: normal breath sounds, lungs clear Cardiovascular Exam: normal peripheral pulses, tachycardia Gastrointestinal/Abdomen Exam: soft, normal bowel sounds Back Exam: normal range of motion Extremity Exam: normal inspection, normal range of motion Skin Exam: normal color Results - Labs Lab/Micro Results: Lab Results-Last 24 Hours 02/28/23 02/28/23 02/28/23 Range/Units 14:35 14:35 14:35 WBC 6.1 (4.0-10.5) x10^3/uL RBC 5.60 (4.1-5.6) x10^6/uL Hgb 16.5 (12.5-18.0) g/dL Hct 48.3 (42-50) % MCV 86.3 (78-100) fL MCH 29.5 (26-32) pg MCHC 34.2 (32-36) g/dL RDW 12.4 (11.5-14.0) % Plt Count 283 (150-450) x10^3/uL MPV 8.7 (7.5-11.0) fL Gran % 50.8 (36.0-66.0) % Immature Gran % (Auto) 0.2 (0.00-0.4) % Nucleat RBC Rel Count 0.0 (0.00-0.1) % Eos # (Auto) 0.05 (0-0.5) x10^3/uL Immature Gran # (Auto) 0.01 (0.00-0.03) x10^3u/L Absolute Lymphs (auto) 2.17 (1.0-4.6) x10^3/uL Absolute Monos (auto) 0.71 (0.0-1.3) x10^3/uL Absolute Nucleated RBC 0.00 (0.00-0.01) x10^3u/L Lymphocytes % 35.8 (24.0-44.0) % Monocytes % 11.7 (0.0-12.0) % Eosinophils % 0.8 (0.00-5.0) % Basophils % 0.7 (0.0-0.4) % Absolute Granulocytes 3.08 (1.4-6.9) x10^3/uL Basophils # 0.04 (0-0.4) x10^3/uL D-Dimer 0.88 H* (0.0-0.50) mg/L Sodium 142 (137-145) mmol/L Potassium 4.3 (3.5-5.1) mmol/L Chloride 99 (98-107) mmol/L Carbon Dioxide 30 (22-30) mmol/L Anion Gap 18.1 H (5-15) MEQ/L BUN 8 L (9-20) mg/dL Creatinine 0.65 L (0.66-1.25) mg/dL Estimated GFR > 60.0 ML/MIN Glucose 145 H (74-106) mg/dL Calcium 8.7 (8.4-10.2) mg/dL Total Bilirubin 0.90 (0.2-1.3) mg/dL AST 169 H (17-59) U/L ALT 98 H (0-50) U/L Alkaline Phosphatase 63 (38-126) U/L Troponin I (0.000-0.034) ng/mL Serum Total Protein 8.6 H (6.3-8.2) g/dL Albumin 4.7 (3.5-5.0) g/dL Urine Color (Yellow) Urine Appearance (Clear) Urine pH (4.6-8.0) Ur Specific [place] (1.005-1.030) Urine Protein (Negative) Urine Glucose (UA) (Negative) mg/dL Urine Ketones (Negative) Urine Blood (Negative) Urine Nitrite (Negative) Urine Bilirubin (Negative) Urine Urobilinogen (0.2) mg/dL Ur Leukocyte Esterase (Negative) U Hyaline Cast (Auto) (0-2) /LPF Urine Microscopic RBC (0-5) /HPF Urine Microscopic WBC (0-5) /HPF Ur Epithelial Cells (None Seen) /HPF Urine Bacteria (None Seen) /HPF Urine Culture Reflexed (NO) Salicylates < 1.0 L (2-20) mg/dL Urine Opiates Level (NEGATIVE) Ur Methadone (NEGATIVE) Acetaminophen < 10 L (10-30) ug/ml Urine Barbiturates (NEGATIVE) Ur Phencyclidine (PCP) (NEGATIVE) Urine Amphetamine (NEGATIVE) U Benzodiazepine Level (NEGATIVE) Urine Cocaine (NEGATIVE) Urine Marijuana (THC) (NEGATIVE) Ethyl Alcohol 396 H (0-10) mg/dL 02/28/23 02/28/23 02/28/23 Range/Units 14:35 15:16 15:16 WBC (4.0-10.5) x10^3/uL RBC (4.1-5.6) x10^6/uL Hgb (12.5-18.0) g/dL Hct (42-50) % MCV (78-100) fL MCH (26-32) pg MCHC (32-36) g/dL RDW (11.5-14.0) % Plt Count (150-450) x10^3/uL MPV (7.5-11.0) fL Gran % (36.0-66.0) % Immature Gran % (Auto) (0.00-0.4) % Nucleat RBC Rel Count (0.00-0.1) % Eos # (Auto) (0-0.5) x10^3/uL Immature Gran # (Auto) (0.00-0.03) x10^3u/L Absolute Lymphs (auto) (1.0-4.6) x10^3/uL Absolute Monos (auto) (0.0-1.3) x10^3/uL Absolute Nucleated RBC (0.00-0.01) x10^3u/L Lymphocytes % (24.0-44.0) % Monocytes % (0.0-12.0) % Eosinophils % (0.00-5.0) % Basophils % (0.0-0.4) % Absolute Granulocytes (1.4-6.9) x10^3/uL Basophils # (0-0.4) x10^3/uL D-Dimer (0.0-0.50) mg/L Sodium (137-145) mmol/L Potassium (3.5-5.1) mmol/L Chloride (98-107) mmol/L Carbon Dioxide (22-30) mmol/L Anion Gap (5-15) MEQ/L BUN (9-20) mg/dL Creatinine (0.66-1.25) mg/dL Estimated GFR ML/MIN Glucose (74-106) mg/dL Calcium (8.4-10.2) mg/dL Total Bilirubin (0.2-1.3) mg/dL AST (17-59) U/L ALT (0-50) U/L Alkaline Phosphatase (38-126) U/L Troponin I < 0.012 (0.000-0.034) ng/mL Serum Total Protein (6.3-8.2) g/dL Albumin (3.5-5.0) g/dL Urine Color Yellow (Yellow) Urine Appearance Clear (Clear) Urine pH 7.0 (4.6-8.0) Ur Specific [place] <=1.005 (1.005-1.030) Urine Protein Negative (Negative) Urine Glucose (UA) Negative (Negative) mg/dL Urine Ketones Negative (Negative) Urine Blood Negative (Negative) Urine Nitrite Negative (Negative) Urine Bilirubin Negative (Negative) Urine Urobilinogen 1.0 A (0.2) mg/dL Ur Leukocyte Esterase Negative (Negative) U Hyaline Cast (Auto) NONE SEEN (0-2) /LPF Urine Microscopic RBC 0-2 (0-5) /HPF Urine Microscopic WBC 0-2 (0-5) /HPF Ur Epithelial Cells None Seen (None Seen) /HPF Urine Bacteria None Seen (None Seen) /HPF Urine Culture Reflexed NO (NO) Salicylates (2-20) mg/dL Urine Opiates Level NEGATIVE (NEGATIVE) Ur Methadone NEGATIVE (NEGATIVE) Acetaminophen (10-30) ug/ml Urine Barbiturates NEGATIVE (NEGATIVE) Ur Phencyclidine (PCP) NEGATIVE (NEGATIVE) Urine Amphetamine NEGATIVE (NEGATIVE) U Benzodiazepine Level NEGATIVE (NEGATIVE) Urine Cocaine NEGATIVE (NEGATIVE) Urine Marijuana (THC) NEGATIVE (NEGATIVE) Ethyl Alcohol (0-10) mg/dL 02/28/23 Range/Units 19:00 WBC (4.0-10.5) x10^3/uL RBC (4.1-5.6) x10^6/uL Hgb (12.5-18.0) g/dL Hct (42-50) % MCV (78-100) fL MCH (26-32) pg MCHC (32-36) g/dL RDW (11.5-14.0) % Plt Count (150-450) x10^3/uL MPV (7.5-11.0) fL Gran % (36.0-66.0) % Immature Gran % (Auto) (0.00-0.4) % Nucleat RBC Rel Count (0.00-0.1) % Eos # (Auto) (0-0.5) x10^3/uL Immature Gran # (Auto) (0.00-0.03) x10^3u/L Absolute Lymphs (auto) (1.0-4.6) x10^3/uL Absolute Monos (auto) (0.0-1.3) x10^3/uL Absolute Nucleated RBC (0.00-0.01) x10^3u/L Lymphocytes % (24.0-44.0) % Monocytes % (0.0-12.0) % Eosinophils % (0.00-5.0) % Basophils % (0.0-0.4) % Absolute Granulocytes (1.4-6.9) x10^3/uL Basophils # (0-0.4) x10^3/uL D-Dimer (0.0-0.50) mg/L Sodium (137-145) mmol/L Potassium (3.5-5.1) mmol/L Chloride (98-107) mmol/L Carbon Dioxide (22-30) mmol/L Anion Gap (5-15) MEQ/L BUN (9-20) mg/dL Creatinine (0.66-1.25) mg/dL Estimated GFR ML/MIN Glucose (74-106) mg/dL Calcium (8.4-10.2) mg/dL Total Bilirubin (0.2-1.3) mg/dL AST (17-59) U/L ALT (0-50) U/L Alkaline Phosphatase (38-126) U/L Troponin I < 0.012 (0.000-0.034) ng/mL Serum Total Protein (6.3-8.2) g/dL Albumin (3.5-5.0) g/dL Urine Color (Yellow) Urine Appearance (Clear) Urine pH (4.6-8.0) Ur Specific [place] (1.005-1.030) Urine Protein (Negative) Urine Glucose (UA) (Negative) mg/dL Urine Ketones (Negative) Urine Blood (Negative) Urine Nitrite (Negative) Urine Bilirubin (Negative) Urine Urobilinogen (0.2) mg/dL Ur Leukocyte Esterase (Negative) U Hyaline Cast (Auto) (0-2) /LPF Urine Microscopic RBC (0-5) /HPF Urine Microscopic WBC (0-5) /HPF Ur Epithelial Cells (None Seen) /HPF Urine Bacteria (None Seen) /HPF Urine Culture Reflexed (NO) Salicylates (2-20) mg/dL Urine Opiates Level (NEGATIVE) Ur Methadone (NEGATIVE) Acetaminophen (10-30) ug/ml Urine Barbiturates (NEGATIVE) Ur Phencyclidine (PCP) (NEGATIVE) Urine Amphetamine (NEGATIVE) U Benzodiazepine Level (NEGATIVE) Urine Cocaine (NEGATIVE) Urine Marijuana (THC) (NEGATIVE) Ethyl Alcohol (0-10) mg/dL - Radiology Impressions Radiology Exams & Impressions: Radiology Procedures Category Date Time Status CHEST 1 VIEW (PORTABLE) Stat Exams 02/28/23 14:46 Completed CHEST WITH CONTRAST [CT] Stat Exams 02/28/23 15:35 Completed Assessment/Plan (1) Alcohol intoxication Current Visit: Yes Status: Acute Assessment & Plan: Initiate CIWA protocol. Psych eval in AM after ETOH level recheck. 1:1 monitoring in ICU in the interim. Folate, thiamine, multivitamin (2) Chest pain Current Visit: No Status: Acute Assessment & Plan: Suspect gastritis. Monitor on telemetry. Code(s): R07.9 - CHEST PAIN, UNSPECIFIED (3) Elevated transaminase level Current Visit: No Status: Acute Assessment & Plan: Suspect alcoholic hepatitis. Recheck CMP in AM Code(s): R74.0 - NONSPEC ELEV OF LEVELS OF TRANSAMNS & LACTIC * DO NOT USE * (4) Tachycardia Current Visit: No Status: Acute Assessment & Plan: Suspect volume depletion and hypersympathetic state. IV fluids. [facility] protocol Code(s): R00.0 - TACHYCARDIA, UNSPECIFIED Telemedicine Encounter - Telemedicine Encounter Telemedicine Encounter: The entirety of this encounter was performed via Telemedicine"
[2023-02-28] MEDS: Sodium Chloride 0.9% W/ 20 mEq KCl/LITER 1,000 ML IV SCH (20:19)
[2023-02-28] MEDS: Ativan 2 MG/1 ML VIAL IV PRN (21:56)
[2023-03-01 04:43] LABS: Absolute Neutrophil Ct (ANC) 1.93 x10^3/uL (1.4-6.9); BASOPHIL % 0.7 % (0.0-0.4); Basophil (Absolute #) 0.03 x10^3/uL (0-0.4); Eosinophil % 3.1 % (0.00-5.0); Eosinophil (Absolute #) 0.13 x10^3/uL (0-0.5); Hematocrit 45.5 % (42-50); Hemoglobin 15.3 g/dL (12.5-18.0); Lymphocyte (Absolute #) 1.59 x10^3/uL (1.0-4.6); Lymphocytes % 37.3 % (24.0-44.0); Mean Cell Volume 87.3 fL (78-100); Mean Corpuscular Hemoglobin 29.4 pg (26-32); Mean Corpuscular Hgb Concent. 33.6 g/dL (32-36); Monocyte (Absolute #) 0.58 x10^3/uL (0.0-1.3); Monocytes % 13.6 % (0.0-12.0); Neutrophil % 45.3 % (36.0-66.0); Platelet Count 221 x10^3/uL (150-450); Red Blood Count 5.21 x10^6/uL (4.1-5.6); Red Cell Distribution Width 12.6 % (11.5-14.0); White Blood Count 4.3 x10^3/uL (4.0-10.5)
[2023-03-01] MEDS: Ativan 2 MG/1 ML VIAL IV PRN (04:48)
[2023-03-01 04:49] LABS: ALBUMIN 4.2 g/dL (3.5-5.0); ALKALINE PHOSPHATASE 54 U/L (38-126); ANION GAP 14.1 MEQ/L (5-15); BLOOD UREA NITROGEN 9 mg/dL (9-20); CHLORIDE 103 mmol/L (98-107); Calcium 8.2 mg/dL (8.4-10.2); Carbon Dioxide 28 mmol/L (22-30); Creatinine 1 0.71 mg/dL (0.66-1.25); EST GLOMERULAR FILTRATION RATE > 60.0 ML/MIN; Glucose 99 mg/dL (74-106); Potassium 4.1 mmol/L (3.5-5.1); SGOT/AST 132 U/L (17-59); SGPT/ALT 88 U/L (0-50); SODIUM 141 mmol/L (137-145); Total Protein 7.9 g/dL (6.3-8.2)
[2023-03-01] MEDS: Sodium Chloride 0.9% W/ 20 mEq KCl/LITER 1,000 ML IV SCH (04:52)
[2023-03-01 04:54] LABS: MAGNESIUM 2.1 mg/dL (1.6-2.3)
[2023-03-01] MEDS: Sodium Chloride 0.9% 1000 ML 1,000 ML IV SCH (07:09)
[2023-03-01 07:31] VITALS: BP 147/94; O2SAT 96
[2023-03-01 08:02] VITALS: PULSE 97
[2023-03-01] MEDS ORDERED: ENOXAPARIN SODIUM SQ SCH (10:00)
[2023-03-01] MEDS ORDERED: THERAGRAN MULTIVITAMIN PO SCH (10:00)
[2023-03-01] MEDS ORDERED: FOLATE 1 MG PO SCH (10:00)
[2023-03-01] MEDS ORDERED: Cardizem 30 MG PO SCH (10:00)
[2023-03-01] MEDS ORDERED: VITAMIN B-1 100 MG PO SCH (10:00)
[2023-03-01] MEDS ORDERED: Lopressor 50 MG PO SCH (10:00)
--- NOTE | 2023-03-01 11:58 | PCM.DS ---
Discharge Summary Date of Admission: 02/28/23 19:37 Date of Discharge: 03/01/23 Admitting Physician: TESHA MENDOZA MD Consults: Consults on Case 02/28/23 19:39 Consult,Juan Alberto [Psychiatric Consult] STAT Primary Care Provider: KARIN SÁNCHEZ Allergies Allergies No Known Drug Allergies Allergy (Verified 06/25/19 17:40) Hospital Summary - Hospital Course Hospital Course: Patient presented with acute alcohol intoxication. As per the documentation yesterday, the patient did not endorse suicidal ideations (he said that he was "killing" himself by drinking so much alcohol but there was no intent to harm himself). He currently denies and suicidal or homicidal ideations. Patient has not required significant sedative administration, and his tremulousness has resolved. The patient is requesting discharge to home. Behavioral health consultation is being canceled and the patient will be released with outpatient alcohol dependence referral. - Vitals & Intake/Output Vital Signs: Vital Signs Temperature 98.0 F 03/01/23 07:29 Pulse Rate 97 H 03/01/23 07:50 Respiratory Rate 16 03/01/23 07:50 Blood Pressure 147/94 03/01/23 07:29 O2 Sat by Pulse Oximetry 96 03/01/23 07:29 Oxygen-Last Documented O2 Percentage 3 Liters = 32% Intake & Output: Intake & Output 02/26/23 02/27/23 02/28/23 03/01/23 11:59 11:59 11:59 11:59 Intake Total 728 Balance 728 Weight 152.6 kg - Lab Result Diagrams: 03/01/23 04:32 03/01/23 04:32 Lab Results-Last 24 Hrs: Lab Results-Last 24 Hours 02/28/23 02/28/23 02/28/23 Range/Units 14:35 14:35 14:35 WBC 6.1 (4.0-10.5) x10^3/uL RBC 5.60 (4.1-5.6) x10^6/uL Hgb 16.5 (12.5-18.0) g/dL Hct 48.3 (42-50) % MCV 86.3 (78-100) fL MCH 29.5 (26-32) pg MCHC 34.2 (32-36) g/dL RDW 12.4 (11.5-14.0) % Plt Count 283 (150-450) x10^3/uL MPV 8.7 (7.5-11.0) fL Gran % 50.8 (36.0-66.0) % Immature Gran % (Auto) 0.2 (0.00-0.4) % Nucleat RBC Rel Count 0.0 (0.00-0.1) % Eos # (Auto) 0.05 (0-0.5) x10^3/uL Immature Gran # (Auto) 0.01 (0.00-0.03) x10^3u/L Absolute Lymphs (auto) 2.17 (1.0-4.6) x10^3/uL Absolute Monos (auto) 0.71 (0.0-1.3) x10^3/uL Absolute Nucleated RBC 0.00 (0.00-0.01) x10^3u/L Lymphocytes % 35.8 (24.0-44.0) % Monocytes % 11.7 (0.0-12.0) % Eosinophils % 0.8 (0.00-5.0) % Basophils % 0.7 (0.0-0.4) % Absolute Granulocytes 3.08 (1.4-6.9) x10^3/uL Basophils # 0.04 (0-0.4) x10^3/uL D-Dimer 0.88 H* (0.0-0.50) mg/L Sodium 142 (137-145) mmol/L Potassium 4.3 (3.5-5.1) mmol/L Chloride 99 (98-107) mmol/L Carbon Dioxide 30 (22-30) mmol/L Anion Gap 18.1 H (5-15) MEQ/L BUN 8 L (9-20) mg/dL Creatinine 0.65 L (0.66-1.25) mg/dL Estimated GFR > 60.0 ML/MIN Glucose 145 H (74-106) mg/dL Calcium 8.7 (8.4-10.2) mg/dL Magnesium (1.6-2.3) mg/dL Total Bilirubin 0.90 (0.2-1.3) mg/dL AST 169 H (17-59) U/L ALT 98 H (0-50) U/L Alkaline Phosphatase 63 (38-126) U/L Troponin I (0.000-0.034) ng/mL Serum Total Protein 8.6 H (6.3-8.2) g/dL Albumin 4.7 (3.5-5.0) g/dL Urine Color (Yellow) Urine Appearance (Clear) Urine pH (4.6-8.0) Ur Specific [place] (1.005-1.030) Urine Protein (Negative) Urine Glucose (UA) (Negative) mg/dL Urine Ketones (Negative) Urine Blood (Negative) Urine Nitrite (Negative) Urine Bilirubin (Negative) Urine Urobilinogen (0.2) mg/dL Ur Leukocyte Esterase (Negative) U Hyaline Cast (Auto) (0-2) /LPF Urine Microscopic RBC (0-5) /HPF Urine Microscopic WBC (0-5) /HPF Ur Epithelial Cells (None Seen) /HPF Urine Bacteria (None Seen) /HPF Urine Culture Reflexed (NO) Salicylates < 1.0 L (2-20) mg/dL Urine Opiates Level (NEGATIVE) Ur Methadone (NEGATIVE) Acetaminophen < 10 L (10-30) ug/ml Urine Barbiturates (NEGATIVE) Ur Phencyclidine (PCP) (NEGATIVE) Urine Amphetamine (NEGATIVE) U Benzodiazepine Level (NEGATIVE) Urine Cocaine (NEGATIVE) Urine Marijuana (THC) (NEGATIVE) Ethyl Alcohol 396 H (0-10) mg/dL 02/28/23 02/28/23 02/28/23 Range/Units 14:35 15:16 15:16 WBC (4.0-10.5) x10^3/uL RBC (4.1-5.6) x10^6/uL Hgb (12.5-18.0) g/dL Hct (42-50) % MCV (78-100) fL MCH (26-32) pg MCHC (32-36) g/dL RDW (11.5-14.0) % Plt Count (150-450) x10^3/uL MPV (7.5-11.0) fL Gran % (36.0-66.0) % Immature Gran % (Auto) (0.00-0.4) % Nucleat RBC Rel Count (0.00-0.1) % Eos # (Auto) (0-0.5) x10^3/uL Immature Gran # (Auto) (0.00-0.03) x10^3u/L Absolute Lymphs (auto) (1.0-4.6) x10^3/uL Absolute Monos (auto) (0.0-1.3) x10^3/uL Absolute Nucleated RBC (0.00-0.01) x10^3u/L Lymphocytes % (24.0-44.0) % Monocytes % (0.0-12.0) % Eosinophils % (0.00-5.0) % Basophils % (0.0-0.4) % Absolute Granulocytes (1.4-6.9) x10^3/uL Basophils # (0-0.4) x10^3/uL D-Dimer (0.0-0.50) mg/L Sodium (137-145) mmol/L Potassium (3.5-5.1) mmol/L Chloride (98-107) mmol/L Carbon Dioxide (22-30) mmol/L Anion Gap (5-15) MEQ/L BUN (9-20) mg/dL Creatinine (0.66-1.25) mg/dL Estimated GFR ML/MIN Glucose (74-106) mg/dL Calcium (8.4-10.2) mg/dL Magnesium (1.6-2.3) mg/dL Total Bilirubin (0.2-1.3) mg/dL AST (17-59) U/L ALT (0-50) U/L Alkaline Phosphatase (38-126) U/L Troponin I < 0.012 (0.000-0.034) ng/mL Serum Total Protein (6.3-8.2) g/dL Albumin (3.5-5.0) g/dL Urine Color Yellow (Yellow) Urine Appearance Clear (Clear) Urine pH 7.0 (4.6-8.0) Ur Specific [place] <=1.005 (1.005-1.030) Urine Protein Negative (Negative) Urine Glucose (UA) Negative (Negative) mg/dL Urine Ketones Negative (Negative) Urine Blood Negative (Negative) Urine Nitrite Negative (Negative) Urine Bilirubin Negative (Negative) Urine Urobilinogen 1.0 A (0.2) mg/dL Ur Leukocyte Esterase Negative (Negative) U Hyaline Cast (Auto) NONE SEEN (0-2) /LPF Urine Microscopic RBC 0-2 (0-5) /HPF Urine Microscopic WBC 0-2 (0-5) /HPF Ur Epithelial Cells None Seen (None Seen) /HPF Urine Bacteria None Seen (None Seen) /HPF Urine Culture Reflexed NO (NO) Salicylates (2-20) mg/dL Urine Opiates Level NEGATIVE (NEGATIVE) Ur Methadone NEGATIVE (NEGATIVE) Acetaminophen (10-30) ug/ml Urine Barbiturates NEGATIVE (NEGATIVE) Ur Phencyclidine (PCP) NEGATIVE (NEGATIVE) Urine Amphetamine NEGATIVE (NEGATIVE) U Benzodiazepine Level NEGATIVE (NEGATIVE) Urine Cocaine NEGATIVE (NEGATIVE) Urine Marijuana (THC) NEGATIVE (NEGATIVE) Ethyl Alcohol (0-10) mg/dL 02/28/23 02/28/23 03/01/23 Range/Units 19:00 23:13 04:32 WBC 4.3 (4.0-10.5) x10^3/uL RBC 5.21 (4.1-5.6) x10^6/uL Hgb 15.3 (12.5-18.0) g/dL Hct 45.5 (42-50) % MCV 87.3 (78-100) fL MCH 29.4 (26-32) pg MCHC 33.6 (32-36) g/dL RDW 12.6 (11.5-14.0) % Plt Count 221 (150-450) x10^3/uL MPV 9.0 (7.5-11.0) fL Gran % 45.3 (36.0-66.0) % Immature Gran % (Auto) 0.0 (0.00-0.4) % Nucleat RBC Rel Count 0.0 (0.00-0.1) % Eos # (Auto) 0.13 (0-0.5) x10^3/uL Immature Gran # (Auto) 0.00 (0.00-0.03) x10^3u/L Absolute Lymphs (auto) 1.59 (1.0-4.6) x10^3/uL Absolute Monos (auto) 0.58 (0.0-1.3) x10^3/uL Absolute Nucleated RBC 0.00 (0.00-0.01) x10^3u/L Lymphocytes % 37.3 (24.0-44.0) % Monocytes % 13.6 H (0.0-12.0) % Eosinophils % 3.1 (0.00-5.0) % Basophils % 0.7 (0.0-0.4) % Absolute Granulocytes 1.93 (1.4-6.9) x10^3/uL Basophils # 0.03 (0-0.4) x10^3/uL D-Dimer (0.0-0.50) mg/L Sodium (137-145) mmol/L Potassium (3.5-5.1) mmol/L Chloride (98-107) mmol/L Carbon Dioxide (22-30) mmol/L Anion Gap (5-15) MEQ/L BUN (9-20) mg/dL Creatinine (0.66-1.25) mg/dL Estimated GFR ML/MIN Glucose (74-106) mg/dL Calcium (8.4-10.2) mg/dL Magnesium (1.6-2.3) mg/dL Total Bilirubin (0.2-1.3) mg/dL AST (17-59) U/L ALT (0-50) U/L Alkaline Phosphatase (38-126) U/L Troponin I < 0.012 0.017 (0.000-0.034) ng/mL Serum Total Protein (6.3-8.2) g/dL Albumin (3.5-5.0) g/dL Urine Color (Yellow) Urine Appearance (Clear) Urine pH (4.6-8.0) Ur Specific [place] (1.005-1.030) Urine Protein (Negative) Urine Glucose (UA) (Negative) mg/dL Urine Ketones (Negative) Urine Blood (Negative) Urine Nitrite (Negative) Urine Bilirubin (Negative) Urine Urobilinogen (0.2) mg/dL Ur Leukocyte Esterase (Negative) U Hyaline Cast (Auto) (0-2) /LPF Urine Microscopic RBC (0-5) /HPF Urine Microscopic WBC (0-5) /HPF Ur Epithelial Cells (None Seen) /HPF Urine Bacteria (None Seen) /HPF Urine Culture Reflexed (NO) Salicylates (2-20) mg/dL Urine Opiates Level (NEGATIVE) Ur Methadone (NEGATIVE) Acetaminophen (10-30) ug/ml Urine Barbiturates (NEGATIVE) Ur Phencyclidine (PCP) (NEGATIVE) Urine Amphetamine (NEGATIVE) U Benzodiazepine Level (NEGATIVE) Urine Cocaine (NEGATIVE) Urine Marijuana (THC) (NEGATIVE) Ethyl Alcohol (0-10) mg/dL 03/01/23 03/01/23 03/01/23 Range/Units 04:32 04:32 08:50 WBC (4.0-10.5) x10^3/uL RBC (4.1-5.6) x10^6/uL Hgb (12.5-18.0) g/dL Hct (42-50) % MCV (78-100) fL MCH (26-32) pg MCHC (32-36) g/dL RDW (11.5-14.0) % Plt Count (150-450) x10^3/uL MPV (7.5-11.0) fL Gran % (36.0-66.0) % Immature Gran % (Auto) (0.00-0.4) % Nucleat RBC Rel Count (0.00-0.1) % Eos # (Auto) (0-0.5) x10^3/uL Immature Gran # (Auto) (0.00-0.03) x10^3u/L Absolute Lymphs (auto) (1.0-4.6) x10^3/uL Absolute Monos (auto) (0.0-1.3) x10^3/uL Absolute Nucleated RBC (0.00-0.01) x10^3u/L Lymphocytes % (24.0-44.0) % Monocytes % (0.0-12.0) % Eosinophils % (0.00-5.0) % Basophils % (0.0-0.4) % Absolute Granulocytes (1.4-6.9) x10^3/uL Basophils # (0-0.4) x10^3/uL D-Dimer (0.0-0.50) mg/L Sodium 141 (137-145) mmol/L Potassium 4.1 (3.5-5.1) mmol/L Chloride 103 (98-107) mmol/L Carbon Dioxide 28 (22-30) mmol/L Anion Gap 14.1 (5-15) MEQ/L BUN 9 (9-20) mg/dL Creatinine 0.71 (0.66-1.25) mg/dL Estimated GFR > 60.0 ML/MIN Glucose 99 (74-106) mg/dL Calcium 8.2 L (8.4-10.2) mg/dL Magnesium 2.1 (1.6-2.3) mg/dL Total Bilirubin 1.00 (0.2-1.3) mg/dL AST 132 H (17-59) U/L ALT 88 H (0-50) U/L Alkaline Phosphatase 54 (38-126) U/L Troponin I (0.000-0.034) ng/mL Serum Total Protein 7.9 (6.3-8.2) g/dL Albumin 4.2 (3.5-5.0) g/dL Urine Color (Yellow) Urine Appearance (Clear) Urine pH (4.6-8.0) Ur Specific [place] (1.005-1.030) Urine Protein (Negative) Urine Glucose (UA) (Negative) mg/dL Urine Ketones (Negative) Urine Blood (Negative) Urine Nitrite (Negative) Urine Bilirubin (Negative) Urine Urobilinogen (0.2) mg/dL Ur Leukocyte Esterase (Negative) U Hyaline Cast (Auto) (0-2) /LPF Urine Microscopic RBC (0-5) /HPF Urine Microscopic WBC (0-5) /HPF Ur Epithelial Cells (None Seen) /HPF Urine Bacteria (None Seen) /HPF Urine Culture Reflexed (NO) Salicylates (2-20) mg/dL Urine Opiates Level (NEGATIVE) Ur Methadone (NEGATIVE) Acetaminophen (10-30) ug/ml Urine Barbiturates (NEGATIVE) Ur Phencyclidine (PCP) (NEGATIVE) Urine Amphetamine (NEGATIVE) U Benzodiazepine Level (NEGATIVE) Urine Cocaine (NEGATIVE) Urine Marijuana (THC) (NEGATIVE) Ethyl Alcohol 124 H 34 H (0-10) mg/dL - Radiology Exams Ordered Rad Exams-Entire Visit: Radiology Procedures Category Date Time Status CHEST 1 VIEW (PORTABLE) Stat Exams 02/28/23 14:46 Completed CHEST WITH CONTRAST [CT] Stat Exams 02/28/23 15:35 Completed Discharge Exam General Appearance: no apparent distress, alert Neurologic Exam: alert, oriented x 3, cooperative, 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 tested, normal mood/affect, nml cerebellar function Eye Exam: PERRL, EOMI, eyes nml inspection Ears, Nose, Throat Exam: normal ENT inspection Neck Exam: normal inspection, non-tender, supple, full range of motion Respiratory Exam: normal breath sounds, lungs clear Cardiovascular Exam: regular rate/rhythm, normal heart sounds Gastrointestinal/Abdomen Exam: soft, normal bowel sounds Back Exam: normal range of motion Extremity Exam: normal inspection, normal range of motion Skin Exam: normal color Final Diagnosis/Problem List - Final Discharge Diagnosis/Problem (1) Alcohol intoxication Current Visit: Yes Status: Acute Assessment & Plan: ETOH level has appropriately down trended (2) Chest pain Current Visit: No Status: Acute Assessment & Plan: Cardiac enzymes negative on telemetry. Code(s): R07.9 - CHEST PAIN, UNSPECIFIED (3) Elevated transaminase level Current Visit: No Status: Acute Assessment & Plan: LFTs improved but will need further surveillance as an outpatient. Fatty liver noted on imaging. Code(s): R74.0 - NONSPEC ELEV OF LEVELS OF TRANSAMNS & LACTIC * DO NOT USE * (4) Tachycardia Current Visit: No Status: Acute Assessment & Plan: Improved. Had run out of metoprolol and diltiazem prescriptions; will issue new Rx and patient will follow up. Code(s): R00.0 - TACHYCARDIA, UNSPECIFIED Telemedicine Encounter - Telemedicine Encounter Telemedicine Encounter: The entirety of this encounter was performed via Telemedicine" - Discharge Disposition: Home, Self-Care Condition: Stable Prescriptions: Continue dilTIAZem HCL [Diltiazem HCl] 60 mg PO DAILY 30 Days #30 tablet Changed Metoprolol Tartrate 25 mg [Lopressor 25MG Tab] 75 mg PO DAILY #30 tablet Instructions: Alcohol use - when is drinking a problem?, Alcohol Withdrawal (DC), Alcohol Use Disorder (DC), Diltiazem, Metoprolol Additional Instructions: FOR OUTPATIENT ALCOHOL SUPPORT [facility] [phone] Follow up with: KARIN SÁNCHEZ [Primary Care Provider] - 03/08/23 9:00 am
[2023-03-01] MEDS ORDERED: PROTONIX 40 MG IV IV SCH (22:00)
== END 2023-03-01 12:06 | disposition home or self-care (01) ==
LOC: ED 14:28 → INTOOBSV 19:37 → UNDOADMOB 19:37 → ICU 19:37 → UNDODISOB 03-01 12:06
PROVIDERS: ADMIT Internal Medicine Critical Care Medicine; ATTEND Family Medicine
DX: F10.129 Alcohol abuse with intoxication, unspecified (principal); R07.9 Chest pain, unspecified; R00.0 Tachycardia, unspecified; F32.A Depression, unspecified; F41.9 Anxiety disorder, unspecified; Z79.899 Other long term (current) drug therapy; Z20.828 Contact with and (suspected) exposure to other viral communicable diseases
CPT/HCPCS: 36000; 36415; 71045; 71260; 80053; 80143; 80179; 80307; 81001; 82077; 83735; 84484; 85025; 85379; 93005; 93268; 94760; 94762; 96374; 96375; 96376; 99284; G0378; Q3014; J2060; J2405; J3360; A9270-GY

== ENCOUNTER 2023-03-27 02:16 | Emergency (ER) | payer MEDICAID ==
[2023-03-27 02:35] VITALS: BP 134/84; TEMP 98.4
--- NOTE | 2023-03-27 03:33 | ERPHSYRPT ---
- History of Present Illness Time Seen by Provider: 03/27/23 03:30 Source: patient Exam Limitations: no limitations Patient Subjective Stated Complaint: R ankle injury after patient was walking to bathroom and twisted and rolled ankle Triage Nursing Assessment: pt transferred from wheelchair to cot by self, pt alert and oriented x3, skin pwd, pt c/o R ankle injury after patient was walking to bathroom and rolled ankle, +2 bilateral pedal pulses Physician History: Patient is a 28-year-old male presents to our ED for evaluation of pain to his right ankle. Patient states he inverted his right ankle while walking to the bathroom. No BHT or LOC. No neck pain. Cervical spine cleared clinically. Pain described as an ache that is localized. Pain worse with movement and palpation. Pain improved with rest. Patient voices no other complaints or concerns at this time. Portions of this note were created with voice recognition technology. There may be grammatical, spelling, punctuation or sound alike errors Method of Injury: fell Occurred: just prior to arrival Quality: constant Severity of Pain-Max: moderate Severity of Pain-Current: mild Lower Extremities Pain: ankle: right Modifying Factors: Improves With: movement Associated Symptoms: none Allergies/Adverse Reactions: enoxaparin [From Lovenox] Allergy (Verified 03/27/23 02:27) Hx Tetanus, Diphtheria Vaccination/Date Given: Yes Hx Influenza Vaccination/Date Given: No Hx Pneumococcal Vaccination/Date Given: No Immunizations Up to Date: Yes Travel Risk - International Travel Have you traveled outside of the country in past 3 weeks: No - Coronavirus Screening Are you exhibiting any of the following symptoms?: No Close contact with a COVID-19 positive Pt in past 14-21 Days: No - Vaccine Status Have you recieved a Covid-19 vaccination: Yes 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 - Vaccination Dates Date of 2cond Vaccination (if applicable): 2020 - Review of Systems Constitutional: No Symptoms, No Fever, No Chills Eyes: No Symptoms Ears, Nose, & Throat: No Symptoms Respiratory: No Symptoms, No Cough, No Dyspnea Cardiac: No Symptoms, No Chest Pain, No Edema, No Syncope Abdominal/Gastrointestinal: No Symptoms, No Abdominal Pain, No Nausea, No Vomiting, No Diarrhea Genitourinary Symptoms: No Symptoms, No Dysuria Musculoskeletal: No Symptoms, No Back Pain, No Neck Pain Skin: No Symptoms, No Rash Neurological: No Symptoms, No Dizziness, No Focal Weakness, No Sensory Changes Psychological: No Symptoms Endocrine: No Symptoms Hematologic/Lymphatic: No Symptoms Immunological/Allergic: No Symptoms All Other Systems: Reviewed and Negative - Past Medical History Pertinent Past Medical History: Yes Neurological History: No Pertinent History ENT History: No Pertinent History Cardiac History: Arrhythmia, Hypertension Respiratory History: Asthma Endocrine Medical History: Diabetes Type II Musculoskeletal History: No Pertinent History GI Medical History: Irritable Bowel History: No Pertinent History Psycho-Social History: Anxiety, Depression, Other Male Reproductive Disorders: No Pertinent History Other Medical History: SVT - Past Surgical History Past Surgical History: Yes Neuro Surgical History: No Pertinent History Cardiac: No Pertinent History, Other Respiratory: No Pertinent History Gastrointestinal: No Pertinent History Genitourinary: No Pertinent History Musculoskeletal: No Pertinent History, Other Male Surgical History: No Pertinent History Other Surgical History: left arm surgery - Social History Smoking Status: Never smoker Exposure to second hand smoke: No Drug Use: none Patient Lives Alone: Yes - Nursing Vital Signs Nursing Vital Signs: Initial Vital Signs Temperature 98.4 F 03/27/23 02:30 Pulse Rate 77 03/27/23 02:30 Respiratory Rate 18 03/27/23 02:30 Blood Pressure 134/84 03/27/23 02:30 O2 Sat by Pulse Oximetry 98 03/27/23 02:30 Pain Scale Pain Intensity 5 - Physical Exam General Appearance: no apparent distress, alert Eyes, Ears, Nose, Throat Exam: moist mucous membranes Neck Exam: non-tender, supple Cardiovascular/Respiratory Exam: chest non-tender, normal breath sounds, regular rate/rhythm, no respiratory distress Gastrointestinal/Abdominal Exam: non-tender, guarding Back Exam: normal inspection, No vertebral tenderness Hips Exam: bilateral: non-tender, normal inspection, normal range of motion, no evidence of injury Legs Exam: bilateral leg: non-tender, normal inspection, normal range of motion, no evidence of injury Knees Exam: bilateral knee: non-tender, normal inspection, normal range of motion, no evidence of injury Ankle Exam: right ankle: non-tender, normal inspection, normal range of motion, no evidence of injury, left ankle: soft tissue tenderness, other (The involved right lower extremity is neurovascular intact distally. Compartments are soft. Cap refill less than 2 seconds.) Foot Exam: bilateral foot: non-tender, normal inspection, normal range of motion, no evidence of injury Neuro/Tendon Exam: normal sensation, normal motor functions Mental Status Exam: alert, oriented x 3, cooperative Skin Exam: normal color, warm, dry SpO2 Interpretation: normal SpO2: 98 O2 Delivery: Room Air - Course Nursing assessment & vital signs reviewed: Yes - Radiology Exams Ankle X-ray Interpretation: Interpreted by me (No fracture or dislocation) Ordered Tests: Active Orders 24 hr Category Date Time Status ANKLE (3 VIEWS) Stat Exams 03/27/23 02:23 Taken - Progress Progress: improved Progress Note: Patient is a 28-year-old male presents to our ED for evaluation of right ankle pain. Patient inverted his ankle while walking to the bathroom. Physical exam reveals some swelling and tenderness to the lateral aspect of the right ankle. X-ray negative for fracture or dislocation. X-ray read by Dr. Fajardo. Formal reading pending. Patient declined pain medication. Patient advised of the findings. Will discharge patient home. Patient given bilateral axillary crutches for comfort. Patient agrees to follow-up in the orthopedic clinic within 48 hours for reevaluation. Portions of this note were created with voice recognition technology. There may be grammatical, spelling, punctuation or sound alike errors Complexity of problems addressed is acute uncomplicated Critical care time. Complex of data reviewed and analyzed is moderate. I decreased independent reviewed the x-ray of the right ankle. Clinical correlation made between x-ray and history and physical exam. Risk of complication and risk morbidity/mortality patient management is low. Patient given bilateral axillary crutches. Patient declined pain medication. Will discharge home. Patient referred to the orthopedic clinic for follow-up. Plan of care established for shared decision making. No social determinants of health present to me to follow-up. Portions of this note were created with voice recognition technology. There may be grammatical, spelling, punctuation or sound alike errors 03/27/23 04:19 Counseled pt/family regarding: lab results, diagnosis, need for follow-up, rad results - Departure Departure Disposition: Home Clinical Impression: Ankle sprain Condition: Stable Critical Care Time: No Referrals: KARIN SÁNCHEZ [Primary Care Provider] - Follow up/PCP as directed Instructions: Ankle Sprain (DC) Additional Instructions: Discharge/Care Plan BRANDON MITCHELL was seen on 03/27/23 in the Emergency Room. The patient was counseled regarding Diagnosis,Lab results, Imaging studies, need for follow up and when to return to the Emergency Room. Prescriptions given: Discharge Note I have spoken with the patient and/or caregivers. I have explained the patient's condition, diagnosis and treatment plan based on the information available to me at this time. I have answered the patient's and/or caregiver's questions and addressed any concerns. The patient and/or caregivers have as good understanding of the patient's diagnosis, condition and treatment plan as can be expected at this point. The vital signs have been stable. The patient's condition is stable and appropriate for discharge from the emergency department. The patient will pursue further outpatient evaluation with the primary care physician or other designated or consulting physician as outlined in the discharge instructions. The patient and/or caregivers are agreeable to this plan of care and follow-up instructions have been explained in detail. The patient and/or caregivers have received these instruction. The patient/and or caregivers are aware that any significant change in condition or worsening of symptoms should prompt an immediate return to this or the closest emergency department or call 911.
[2023-03-27 04:24] VITALS: PULSE 80; RESP 18
[2023-03-27 04:29] VITALS: O2SAT 98
--- NOTE | 2023-03-27 08:57 | XRAY ---
Indication: Pain and swelling following injury. Comparison: None 3 view right ankle demonstrates small posterior heel spur and mild anterolateral soft tissue swelling. No other bony, articular, or soft tissue abnormalities.
== END 2023-03-27 04:39 | disposition home or self-care (01) ==
LOC: ED 02:16
DX: S93.401A Sprain of unspecified ligament of right ankle, initial encounter (principal); X50.0XXA Overexertion from strenuous movement or load, initial encounter; Y93.01 Activity, walking, marching and hiking; I10 Essential (primary) hypertension; E11.9 Type 2 diabetes mellitus without complications
CPT/HCPCS: 73610; 99283

== ENCOUNTER 2023-04-10 18:13 | Emergency (ER) | payer MEDICAID ==
[2023-04-10] MEDS ORDERED: Sodium Chloride 0.9% 1000 ML 1,000 ML IV STA ×2 (18:25→19:47)
[2023-04-10 18:54] VITALS: TEMP 98.8
[2023-04-10] MEDS ORDERED: Sodium Chloride 0.9% 1000 ML 1,000 ML ONE ×2 (19:04→19:47)
[2023-04-10] MEDS ORDERED: Reglan 10 MG/2 ML ONE (19:06)
[2023-04-10] MEDS ORDERED: Reglan 10 MG/2 ML IV ONE (19:06)
[2023-04-10 19:07] LABS: Absolute Neutrophil Ct (ANC) 4.17 x10^3/uL (1.4-6.9); BASOPHIL % 1.4 % (0.0-0.4); Eosinophil % 1.1 % (0.00-5.0); Eosinophil (Absolute #) 0.08 x10^3/uL (0-0.5); Hematocrit 49.1 % (42-50); Hemoglobin 16.7 g/dL (12.5-18.0); IMMATURE GRAN # 0.01 x10^3u/L (0.00-0.03); IMMATURE GRAN % 0.1 % (0.00-0.4); Lymphocyte (Absolute #) 2.41 x10^3/uL (1.0-4.6); Lymphocytes % 33.8 % (24.0-44.0); Mean Cell Volume 89.4 fL (78-100); Mean Corpuscular Hemoglobin 30.4 pg (26-32); Mean Platelet Volume 8.8 fL (7.5-11.0); Monocyte (Absolute #) 0.36 x10^3/uL (0.0-1.3); Neutrophil % 58.6 % (36.0-66.0); Platelet Count 287 x10^3/uL (150-450); Red Blood Count 5.49 x10^6/uL (4.1-5.6); Red Cell Distribution Width 13.7 % (11.5-14.0); White Blood Count 7.1 x10^3/uL (4.0-10.5)
[2023-04-10 19:16] LABS: ALBUMIN 5.1 g/dL (3.5-5.0); ALKALINE PHOSPHATASE 69 U/L (38-126); ANION GAP 28.4 MEQ/L (5-15); BLOOD UREA NITROGEN 11 mg/dL (9-20); CHLORIDE 98 mmol/L (98-107); Calcium 8.8 mg/dL (8.4-10.2); Carbon Dioxide 22 mmol/L (22-30); Creatinine 1 0.75 mg/dL (0.66-1.25); EST GLOMERULAR FILTRATION RATE > 60.0 ML/MIN; Glucose 190 mg/dL (74-106); Potassium 4.1 mmol/L (3.5-5.1); SALICYLATE < 1.0 mg/dL (2-20); SGOT/AST 135 U/L (17-59); SGPT/ALT 143 U/L (0-50); SODIUM 144 mmol/L (137-145); Total Protein 8.3 g/dL (6.3-8.2)
[2023-04-10 19:35] LABS: ETHYL ALCOHOL 452 mg/dL (0-10)
[2023-04-10 20:43] LABS: Amphetamine,Urine NEGATIVE (NEGATIVE); Barbiturate,Urine NEGATIVE (NEGATIVE); Benzodiazepine,Urine NEGATIVE (NEGATIVE); Cocaine,Urine NEGATIVE (NEGATIVE); Methadone,Urine NEGATIVE (NEGATIVE); Opiate,Urine NEGATIVE (NEGATIVE); PCP,Urine NEGATIVE (NEGATIVE); THC,Urine NEGATIVE (NEGATIVE)
[2023-04-10 20:57] LABS: ADD URINE CULTURE? NO (NO); Appearance Clear (Clear); Bacteria Rare /HPF (None Seen); Bilirubin Negative (Negative); Blood Negative (Negative); Epithelial Cells None Seen /HPF (None Seen); Glucose, Urine Negative (Negative); Hyaline Casts 0-2 /LPF (0-2); Ketones 40 (Negative); Leukocyte Esterase Negative (Negative); Nitrite Negative (Negative); Ph 5.5 (4.6-8.0); Protein,Urine Dip 100 (Negative); RBC 0-2 /HPF (0-5); WBC 0-2 /HPF (0-5)
--- NOTE | 2023-04-11 00:18 | ERPHSYRPT ---
- History of Present Illness Time Seen by Provider: 04/10/23 18:35 Source: patient Exam Limitations: intoxication Patient Subjective Stated Complaint: pt states that he relasped night Triage Nursing Assessment: pt ambulated into the er; pt is axo x3; c/o withdrawal; ETOH on board; pt is unable to keep eye open and respond to questions in a timely manor; clear lung sounds in all lobes; active bowel sounds in all quads; vitals wnl; no respiratory distress present; skin PDW Physician History: Patient returns for the second time in 24 hours intensely intoxicated shaking trembling stumbling apparently his problems stem from relationship problems with his significant other. However his history is not believed to be reliable with his level of intoxication. He claims to have been sober for an extended period of time and then relapsed on his alcoholism day before yesterday. 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 - Vaccination Dates Date of 2cond Vaccination (if applicable): 2020 - Review of Systems All Other Systems: Unable due to condition - Past Medical History Pertinent Past Medical History: Yes Neurological History: No Pertinent History ENT History: No Pertinent History Cardiac History: Arrhythmia, Hypertension Respiratory History: Asthma Endocrine Medical History: Diabetes Type II Musculoskeletal History: No Pertinent History GI Medical History: Irritable Bowel History: No Pertinent History Psycho-Social History: Anxiety, Depression, Other Male Reproductive Disorders: No Pertinent History Other Medical History: SVT - Past Surgical History Past Surgical History: Yes Neuro Surgical History: No Pertinent History Cardiac: No Pertinent History, Other Respiratory: No Pertinent History Gastrointestinal: No Pertinent History Genitourinary: No Pertinent History Musculoskeletal: No Pertinent History, Other Male Surgical History: No Pertinent History Other Surgical History: left arm surgery - Social History Smoking Status: Never smoker Exposure to second hand smoke: No Drug Use: none Patient Lives Alone: Yes - Nursing Vital Signs Nursing Vital Signs: Initial Vital Signs Temperature 98.8 F 04/10/23 18:24 Pulse Rate 98 H 04/10/23 18:24 Respiratory Rate 20 04/10/23 18:24 Blood Pressure 137/77 04/10/23 18:24 O2 Sat by Pulse Oximetry 94 L 04/10/23 18:24 Pain Scale Pain Intensity 0 - Physical Exam General Appearance: other (Intensely intoxicated white male) Eye Exam: PERRL/EOMI, eyes nml inspection Ears, Nose, Throat Exam: normal ENT inspection, TMs normal, pharynx normal, moist mucous membranes Neck Exam: normal inspection, non-tender, supple, full range of motion Respiratory Exam: normal breath sounds, lungs clear, No respiratory distress Cardiovascular Exam: regular rate/rhythm, normal heart sounds, normal peripheral pulses Gastrointestinal/Abdomen Exam: soft, normal bowel sounds, No tenderness, No mass Back Exam: normal inspection, normal range of motion, No CVA tenderness, No vertebral tenderness Extremity Exam: normal inspection, normal range of motion, pelvis stable Neurologic Exam: other (Intoxicated) Skin Exam: normal color, warm, dry SpO2 Interpretation: normal SpO2: 97 O2 Delivery: Room Air - Course Nursing assessment & vital signs reviewed: Yes Ordered Tests: Active Orders 24 hr Category Date Time Status CBC W DIFF Stat Lab 04/10/23 19:00 Completed CMP Stat Lab 04/10/23 18:50 Completed ETHYL ALCOHOL Stat Lab 04/10/23 18:50 Completed ETHYL ALCOHOL Stat Lab 04/11/23 05:56 Completed SALICYLATE Stat Lab 04/10/23 18:50 Completed UA W/RFX UR CULTURE Stat Lab 04/10/23 19:53 Completed Urine Triage Profile Stat Lab 04/10/23 19:53 Completed Medication Summary Discontinued Medications Generic Name Dose Route Start Last Admin Trade Name Freq PRN Reason Stop Dose Admin Sodium Chloride 1,000 mls @ 999 mls/hr 04/10/23 18:25 04/10/23 20:35 Sodium Chloride 0.9% 1000 Ml IV 04/10/23 19:25 Infused .Q1H1M STA Infusion Sodium Chloride Confirm 04/10/23 19:04 Sodium Chloride 0.9% 1000 Ml Administered 04/10/23 19:05 Dose 1,000 mls @ ud .ROUTE .STK-MED ONE Sodium Chloride 1,000 mls @ 999 mls/hr 04/10/23 19:47 04/10/23 20:57 Sodium Chloride 0.9% 1000 Ml IV 04/10/23 20:47 Infused .Q1H1M STA Infusion Sodium Chloride Confirm 04/10/23 19:47 Sodium Chloride 0.9% 1000 Ml Administered 04/10/23 19:48 Dose 1,000 mls @ ud .ROUTE .STK-MED ONE Metoclopramide HCl 10 mg 04/10/23 19:06 04/10/23 19:07 Metoclopramide Hcl 10 Mg/2 Ml Vial IV 04/10/23 19:07 10 mg STAT ONE Administration Metoclopramide HCl Confirm 04/10/23 19:06 Metoclopramide Hcl 10 Mg/2 Ml Vial Administered 04/10/23 19:07 Dose 10 mg .ROUTE .STK-MED ONE Metoclopramide HCl 10 mg 04/11/23 00:23 04/11/23 00:40 Metoclopramide Hcl 10 Mg/2 Ml Vial IV 04/11/23 00:24 10 mg STAT ONE Administration Metoclopramide HCl Confirm 04/11/23 00:39 Metoclopramide Hcl 10 Mg/2 Ml Vial Administered 04/11/23 00:40 Dose 10 mg .ROUTE .STK-MED ONE Lab/Rad Data: Laboratory Result Diagrams 04/10/23 19:00 04/10/23 18:50 Laboratory Results 04/11/23 04/10/23 04/10/23 Range/Units 05:56 Unknown 19:53 WBC (4.0-10.5) x10^3/uL RBC (4.1-5.6) x10^6/uL Hgb (12.5-18.0) g/dL Hct (42-50) % MCV (78-100) fL MCH (26-32) pg MCHC (32-36) g/dL RDW (11.5-14.0) % Plt Count (150-450) x10^3/uL MPV (7.5-11.0) fL Gran % (36.0-66.0) % Immature Gran % (Auto) (0.00-0.4) % Nucleat RBC Rel Count (0.00-0.1) % Eos # (Auto) (0-0.5) x10^3/uL Immature Gran # (Auto) (0.00-0.03) x10^3u/L Absolute Lymphs (auto) (1.0-4.6) x10^3/uL Absolute Monos (auto) (0.0-1.3) x10^3/uL Absolute Nucleated RBC (0.00-0.01) x10^3u/L Lymphocytes % (24.0-44.0) % Monocytes % (0.0-12.0) % Eosinophils % (0.00-5.0) % Basophils % (0.0-0.4) % Absolute Granulocytes (1.4-6.9) x10^3/uL Basophils # (0-0.4) x10^3/uL Sodium (137-145) mmol/L Potassium (3.5-5.1) mmol/L Chloride (98-107) mmol/L Carbon Dioxide (22-30) mmol/L Anion Gap (5-15) MEQ/L BUN (9-20) mg/dL Creatinine (0.66-1.25) mg/dL Estimated GFR ML/MIN Glucose (74-106) mg/dL Calcium (8.4-10.2) mg/dL Total Bilirubin (0.2-1.3) mg/dL AST (17-59) U/L ALT (0-50) U/L Alkaline Phosphatase (38-126) U/L Serum Total Protein (6.3-8.2) g/dL Albumin (3.5-5.0) g/dL Urine Color (Yellow) Urine Appearance (Clear) Urine pH (4.6-8.0) Ur Specific [place] (1.005-1.030) Urine Protein (Negative) Urine Glucose (UA) (Negative) mg/dL Urine Ketones (Negative) Urine Blood (Negative) Urine Nitrite (Negative) Urine Bilirubin (Negative) Urine Urobilinogen (0.2) mg/dL Ur Leukocyte Esterase (Negative) U Hyaline Cast (Auto) (0-2) /LPF Urine Microscopic RBC (0-5) /HPF Urine Microscopic WBC (0-5) /HPF Ur Epithelial Cells (None Seen) /HPF Urine Bacteria (None Seen) /HPF Urine Culture Reflexed (NO) Salicylates (2-20) mg/dL Urine Opiates Level NEGATIVE (NEGATIVE) Ur Methadone NEGATIVE (NEGATIVE) Acetaminophen < 10 L (10-30) ug/ml Urine Barbiturates NEGATIVE (NEGATIVE) Ur Phencyclidine (PCP) NEGATIVE (NEGATIVE) Urine Amphetamine NEGATIVE (NEGATIVE) U Benzodiazepine Level NEGATIVE (NEGATIVE) Urine Cocaine NEGATIVE (NEGATIVE) Urine Marijuana (THC) NEGATIVE (NEGATIVE) Ethyl Alcohol 177 H (0-10) mg/dL 04/10/23 04/10/23 04/10/23 Range/Units 19:53 19:00 18:50 WBC 7.1 (4.0-10.5) x10^3/uL RBC 5.49 (4.1-5.6) x10^6/uL Hgb 16.7 (12.5-18.0) g/dL Hct 49.1 (42-50) % MCV 89.4 (78-100) fL MCH 30.4 (26-32) pg MCHC 34.0 (32-36) g/dL RDW 13.7 (11.5-14.0) % Plt Count 287 (150-450) x10^3/uL MPV 8.8 (7.5-11.0) fL Gran % 58.6 (36.0-66.0) % Immature Gran % (Auto) 0.1 (0.00-0.4) % Nucleat RBC Rel Count 0.0 (0.00-0.1) % Eos # (Auto) 0.08 (0-0.5) x10^3/uL Immature Gran # (Auto) 0.01 (0.00-0.03) x10^3u/L Absolute Lymphs (auto) 2.41 (1.0-4.6) x10^3/uL Absolute Monos (auto) 0.36 (0.0-1.3) x10^3/uL Absolute Nucleated RBC 0.00 (0.00-0.01) x10^3u/L Lymphocytes % 33.8 (24.0-44.0) % Monocytes % 5.0 (0.0-12.0) % Eosinophils % 1.1 (0.00-5.0) % Basophils % 1.4 (0.0-0.4) % Absolute Granulocytes 4.17 (1.4-6.9) x10^3/uL Basophils # 0.10 (0-0.4) x10^3/uL Sodium 144 (137-145) mmol/L Potassium 4.1 (3.5-5.1) mmol/L Chloride 98 (98-107) mmol/L Carbon Dioxide 22 (22-30) mmol/L Anion Gap 28.4 H (5-15) MEQ/L BUN 11 (9-20) mg/dL Creatinine 0.75 (0.66-1.25) mg/dL Estimated GFR > 60.0 ML/MIN Glucose 190 H (74-106) mg/dL Calcium 8.8 (8.4-10.2) mg/dL Total Bilirubin 0.60 (0.2-1.3) mg/dL AST 135 H (17-59) U/L ALT 143 H (0-50) U/L Alkaline Phosphatase 69 (38-126) U/L Serum Total Protein 8.3 H (6.3-8.2) g/dL Albumin 5.1 H (3.5-5.0) g/dL Urine Color Yellow (Yellow) Urine Appearance Clear (Clear) Urine pH 5.5 (4.6-8.0) Ur Specific [place] 1.010 (1.005-1.030) Urine Protein 100 A (Negative) Urine Glucose (UA) Negative (Negative) mg/dL Urine Ketones 40 A (Negative) Urine Blood Negative (Negative) Urine Nitrite Negative (Negative) Urine Bilirubin Negative (Negative) Urine Urobilinogen 1.0 A (0.2) mg/dL Ur Leukocyte Esterase Negative (Negative) U Hyaline Cast (Auto) 0-2 (0-2) /LPF Urine Microscopic RBC 0-2 (0-5) /HPF Urine Microscopic WBC 0-2 (0-5) /HPF Ur Epithelial Cells None Seen (None Seen) /HPF Urine Bacteria Rare A (None Seen) /HPF Urine Culture Reflexed NO (NO) Salicylates < 1.0 L (2-20) mg/dL Urine Opiates Level (NEGATIVE) Ur Methadone (NEGATIVE) Acetaminophen (10-30) ug/ml Urine Barbiturates (NEGATIVE) Ur Phencyclidine (PCP) (NEGATIVE) Urine Amphetamine (NEGATIVE) U Benzodiazepine Level (NEGATIVE) Urine Cocaine (NEGATIVE) Urine Marijuana (THC) (NEGATIVE) Ethyl Alcohol 452 H (0-10) mg/dL - Progress Progress: improved Progress Note: 04/11/23 06:34 Patient was admitted with an alcohol greater than 400 has basically slept through the night and now has a blood sugar of 177. He has arranged transportation home with his sister and when she arrives he will be releasedHe was asked that the next time he gets drunk he just sleep it off at home and not be occupying in ER bed all night Medical Desision Making - Diagnostic Testing Diagnostic test were ordered, analyzed, and reviewed by me: Yes - Risk of complications Minimal Risk: Minimal risk of morbidity - Departure Departure Disposition: Home Clinical Impression: Alcohol intoxication Condition: Stable Critical Care Time: No Referrals: KARIN SÁNCHEZ [Primary Care Provider] - Follow up/PCP as directed
[2023-04-11] MEDS ORDERED: Reglan 10 MG/2 ML IV ONE (00:23)
[2023-04-11] MEDS ORDERED: Reglan 10 MG/2 ML ONE (00:39)
[2023-04-11 04:51] VITALS: BP 132/75; PULSE 88; RESP 15
[2023-04-11 06:21] VITALS: O2SAT 97
== END 2023-04-11 06:58 | disposition home or self-care (01) ==
LOC: ED 18:13
DX: F10.129 Alcohol abuse with intoxication, unspecified (principal); Y90.8 Blood alcohol level of 240 mg/100 ml or more; Z63.0 Problems in relationship with spouse or partner; I10 Essential (primary) hypertension; E11.9 Type 2 diabetes mellitus without complications
CPT/HCPCS: 36000; 36415; 80053; 80143; 80179; 80307; 81001; 82077; 85025; 96360; 96361; 96374; 96376; 99284